=== PATIENT | male | born 1950 | race Caucasian/White ===

== ENCOUNTER 2023-01-02 16:13 | Inpatient (IN) ==
[2023-01-02] MEDS ORDERED: SODIUM CHLORIDE 0.9% 1000ML 1,000 ML IV SCH (17:00)
--- NOTE | 2023-01-02 17:06 | Emergency Department Note ---
Impression & Plan Near syncope, KENA (acute kidney injury), Acute hyperkalemia, Hypomagnesemia ED Provider Note NAME: DI ROUSSEAU AGE: 72 SEX: M : 1950 ARRIVES VIA: Walk-In INFORMANT: Patient, ED PROVIDER(S): Robert Purvis DO CHIEF COMPLAINT: Low blood pressure HPI: The patient is a 72-year-old male who presented to the emergency department for an evaluation of low blood pressure. Patient went to see his family doctor because of dizziness. He felt as though he was going to pass out when he went to stand. The patient had outpatient laboratory studies drawn. He was called by his family doctor and told to go to the emergency department for further evaluation because his BUN and creatinine were elevated as well as his potassium. He was told he would need IV fluids. Patient states at rest he feels much better. He denies having any decreased urine output. He was recently started on spironolactone which his family doctor told him he should stop. Otherwise he has been compliant with his outpatient medications. ROS: See above HPI for pertinent positives & negatives. A total of 10 systems reviewed and were otherwise negative. PAST MEDICAL HISTORY: See Below PAST SURGICAL HISTORY: See Below FAMILY HISTORY: See Below SOCIAL HISTORY: See Below HOME MEDICATIONS: See Below ALLERGIES: See Below VITALS: See Below PHYSICAL EXAMINATION: GENERAL: Patient is awake alert in no acute distress patient is resting c omfortably and showing no signs of anxiety EYES: The conjunctivae are clear. The pupils are round and reactive. EARS, NOSE, MOUTH AND THROAT: The nose is without any evidence of any deformity. NECK: The neck is nontender and supple. RESPIRATORY: Normal respiratory effort is noted there is no evidence of wheezing rhonchi or rales CARDIOVASCULAR: Regular rate and rhythm noted there no murmurs rubs or gallops normal S1 normal S2. GASTROINTESTINAL: The abdomen is soft. Abdomen is nontender. MUSCULOSKELETAL/EXTREMITIES: There is no evidence of gross deformity full range of motion is noted in the hips and shoulders. SKIN: There is no obvious evidence of any rash. There are no petechiae, pallor or cyanosis noted. NEUROLOGIC: Patient is awake alert and oriented x3 MEDICAL DECISION MAKING: The patient is a 72-year-old male who presented to the emergency department for dizziness and near syncope. The patient was seen by his primary care physician previously. He was sent to the emergency department for further evaluation after his laboratory studies revealed an elevation in his potassium. The patient was treated with IV fluids in the emergency department. On reevaluation he was feeling somewhat improved. I discussed patient's laboratory and radiographic studies with him. He does appear to have an elevation in his creatinine compared to baseline which is likely related to his medications. Given his findings I discussed his condition with the on-call [facility] hospitalist. They have agreed to evaluate the patient in the emergency department for further management and disposition. Triage Nursing notes reviewed. Prior medical records reviewed Vital Signs: reviewed and remarkable for elevated blood pressure. Differential diagnosis: Infection, dehydration, metabolic abnormality, hypo/hyperglycemia, electrolyte disturbance, anemia, hypoxia, cardiac sources, intracerebral event, toxicologic, neurologic, as well as other pathologies. ER treatment provided: See below Diagnostics interpreted by me: ECG: EKG was obtained in the emergency department. My interpretation is normal sinus rhythm at 74 bpm. There was no ectopy. Right bundle branch block pattern was noted. This was paired to a tracing from October 25, 2009. The bundle-branch block is new compared to the previous tracing. Cardiac Monitoring: An order was placed for continuous cardiac monitoring. The monitor shows a rate of 68 bpm with sinus rhythm. Laboratory studies: As stated above and show below. Imaging studies: See below. Radiographic imaging was reviewed by myself Consultation(s): I discussed this case with Dr. Rose Past Med/Surg History Medical History Actinic keratitis Anxiety Arthritis Asthma rare rescue inhaler use/"well controlled" Cardiac murmur no significant valvular disease per 2011 DSE Chronic bronchitis Chronic obstructive pulmonary disease "well controlled" per patient Depression GERD (gastroesophageal reflux disease) Hiatal hernia Hyperlipidemia Hypertension Lung mass hx/"resolved" s/p abx treatment/no further details Surgical History Fusion of spine LUMBAR History of colonoscopy History of esophagogastroduodenoscopy (EGD) History of hip surgery LEFT> PER PATIENT> HAD THIS PROCEDURE A CHILD FOR A BLOOD CLOT THAT HAD HARDENED IN HIS HIP> REMOVED CLOT NO ISSUE SINCE History of right cataract surgery Family History Father Heart disease Family/Other Colon cancer Mother Diabetes Social History Smoking Status: Never smoker Second Hand Exposure: No; Do You Dip or Chew Tobacco: Yes (1 can a day/advised); Hx Alcohol Use: No Hx Substance Use: No Preferred Language: Syrian Communication Ability: Effective Branch Specialist Required: No Beliefs That Will Affect Care: None marital status: Current Living Situation: Spouse current occupational status: retired Feels Safe at Home: Yes Assistive Devices: Glasses and Hearing Aid - Bilateral Allergies Allergies Allergy/AdvReac Type Severity Reaction Status Date / Time amlodipine Allergy Intermediate Hives Verified 01/02/23 18:00 nizatidine Allergy Intermediate Hives Verified 01/02/23 18:00 simvastatin Allergy Intermediate Hives Verified 01/02/23 18:00 Home Meds Home Medications Medication Instructions Recorded Confirmed atorvastatin 80 mg tablet 80 mg PO PM 03/08/19 01/02/23 cholecalciferol (vitamin D3) 50 2,000 unit PO QAM 03/08/19 01/02/23 mcg (2,000 unit) tablet fluvoxamine 100 mg tablet 50 mg PO BID 03/08/19 01/02/23 fosinopril 40 mg tablet 40 mg PO QAM 03/08/19 01/02/23 metoprolol succinate 25 mg 25 mg PO QAM 03/08/19 01/02/23 tablet,extended release 24 hr omeprazole 40 mg capsule,delayed 40 mg PO BID 03/08/19 01/02/23 release doxazosin 4 mg tablet 4 mg PO DAILY 10/18/20 01/02/23 cetirizine 10 mg tablet (Zyrtec) 10 mg PO DAILY PRN Congestion 01/02/23 01/02/23 fluticasone propionate 50 2 spray intranasal DAILY PRN 01/02/23 01/02/23 mcg/actuation nasal Congestion spray,suspension gabapentin 300 mg capsule 300 mg PO BID 01/02/23 01/02/23 mirtazapine 30 mg tablet 30 mg PO HS 01/02/23 01/02/23 spironolactone 50 mg tablet 50 mg PO QAM 01/02/23 01/02/23 Previous Rx's Medication Instructions Recorded albuterol sulfate 90 mcg/actuation 90 mcg inhalation Q4H PRN 05/27/22 aerosol inhaler Shortness Of Breath #3 grams Results & Data (ED) Vital Signs Vital Signs - 24 hr 01/02/23 16:14 01/02/23 16:55 01/02/23 17:28 Temperature 36.8 C Temperature Source Temporal Artery Scan Pulse Rate 78 74 Pulse Rate [Right Finger] Pulse Rhythm [Right Finger] Pulse Strength [Right Finger] Respiratory Rate 18 Respiratory Effort / Characteristics Non-Labored Respiratory Depth Normal Respiratory Pattern Blood Pressure 124/78 Blood Pressure [Right Arm] Blood Pressure Mean 93 Blood Pressure Mean [Right Arm] Blood Pressure Position [Right Arm] Pulse Oximetry 96 93 Oxygen Delivery Method Room Air Room Air Sepsis Recent Fever Within 48 Hours No Sepsis New/Unexplained Change in Mental Status No Sepsis Action Taken by Nursing No Action Required 01/02/23 18:00 Temperature Temperature Source Pulse Rate Pulse Rate [Right Finger] 62 Pulse Rhythm [Right Finger] Regular Pulse Strength [Right Finger] Normal Respiratory Rate 18 Respiratory Effort / Characteristics Non-Labored Respiratory Depth Normal Respiratory Pattern Regular Blood Pressure Blood Pressure [Right Arm] 145/84 H Blood Pressure Mean Blood Pressure Mean [Right Arm] 104 Blood Pressure Position [Right Arm] Lying Pulse Oximetry 98 Oxygen Delivery Method Room Air Sepsis Recent Fever Within 48 Hours Sepsis New/Unexplained Change in Mental Status Sepsis Action Taken by Retirement Medications Current Medication List: was personally reviewed by me Laboratory Data Attestation: I reviewed the patient's lab results. 01/02/23 16:55 01/02/23 16:55 Lab Results 01/02/23 01/02/23 01/02/23 Range/Units 16:55 16:55 16:55 WBC 9.97 (4.8-10.8) K/ul RBC 4.01 L (4.70-6.10) M/uL Hgb 13.2 L (14.0-18.0) g/dl Hct 38.3 L (42.0-52.0) % MCV 95.5 (80.0-100.0) fL MCH 32.9 (25.0-34.0) pg MCHC 34.5 (32.0-36.0) g/dL RDW Std Deviation 46.6 H (36.4-46.3) fL RDW Coeff of Genny 13.2 (11.5-14.5) % Plt Count 238 (130-400) K/uL MPV 10.1 (9.4-12.4) fL Immature Gran % (Auto) 0.4 % Neut % (Auto) 74.5 % Lymph % (Auto) 15.7 % Williams % (Auto) 7.4 % Eos % (Auto) 1.6 % Baso % (Auto) 0.4 % Neut # (Auto) 7.42 H (1.40-6.50) K/uL Lymph # (Auto) 1.57 (1.2-3.4) K/uL Williams # (Auto) 0.74 H (0.11-0.59) K/uL Eos # (Auto) 0.16 (0-0.50) K/uL Baso # (Auto) 0.04 (0-0.2) K/uL Immature Gran # (Auto) 0.04 (0.01-0.20) K/uL PT 10.8 (9.0-12.0) Seconds INR 1.0 (0.9-1.1) APTT 24.2 (21.0-31.0) Seconds PTT Ratio 0.9 Sodium 136 (136-145) mmol/L Potassium 5.7 H (3.5-5.1) mmol/L Chloride 108 H (98-107) mmol/L Carbon Dioxide 22 (21-32) mmol/L Anion Gap 6 (3-11) BUN 52 H (6-23) mg/dl Creatinine 2.51 H (0.6-1.4) mg/dl Est Cr Clr Drug Dosing 30.1 ml/min Est GFR ( Amer) 28.5 ml/min Est GFR (Non-Af Amer) 24.6 ml/min BUN/Creatinine Ratio 20.7 H (10-20) Glucose 102 H (70-99(Fasting)) mg/dl Calcium 8.7 (8.6-10.3) mg/dl Magnesium 1.6 L (1.7-2.4) mg/dl Total Bilirubin 0.3 (0.2-1.0) mg/dl AST 15 (13-39) U/L ALT 15 (7-52) U/L Alkaline Phosphatase 84 (34-104) U/L Total Creatine Kinase 76 (30-223) U/L Troponin I High Sens 6.7 (0-20) pg/ml Total Protein 7.1 (6.0-8.3) gm/dl Albumin 3.8 (3.4-5.0) gm/dl Globulin 3.3 (2.5-4.0) gm/dl Albumin/Globulin Ratio 1.2 (0.9-2) TSH (0.300-4.500) uIu/ml SARS-CoV-2, RNA, NAAT (NEGATIVE) 01/02/23 01/02/23 Range/Units 16:55 17:32 WBC (4.8-10.8) K/ul RBC (4.70-6.10) M/uL Hgb (14.0-18.0) g/dl Hct (42.0-52.0) % MCV (80.0-100.0) fL MCH (25.0-34.0) pg MCHC (32.0-36.0) g/dL RDW Std Deviation (36.4-46.3) fL RDW Coeff of Genny (11.5-14.5) % Plt Count (130-400) K/uL MPV (9.4-12.4) fL Immature Gran % (Auto) % Neut % (Auto) % Lymph % (Auto) % Williams % (Auto) % Eos % (Auto) % Baso % (Auto) % Neut # (Auto) (1.40-6.50) K/uL Lymph # (Auto) (1.2-3.4) K/uL Williams # (Auto) (0.11-0.59) K/uL Eos # (Auto) (0-0.50) K/uL Baso # (Auto) (0-0.2) K/uL Immature Gran # (Auto) (0.01-0.20) K/uL PT (9.0-12.0) Seconds INR (0.9-1.1) APTT (21.0-31.0) Seconds PTT Ratio Sodium (136-145) mmol/L Potassium (3.5-5.1) mmol/L Chloride (98-107) mmol/L Carbon Dioxide (21-32) mmol/L Anion Gap (3-11) BUN (6-23) mg/dl Creatinine (0.6-1.4) mg/dl Est Cr Clr Drug Dosing ml/min Est GFR ( Amer) ml/min Est GFR (Non-Af Amer) ml/min BUN/Creatinine Ratio (10-20) Glucose (70-99(Fasting)) mg/dl Calcium (8.6-10.3) mg/dl Magnesium (1.7-2.4) mg/dl Total Bilirubin (0.2-1.0) mg/dl AST (13-39) U/L ALT (7-52) U/L Alkaline Phosphatase (34-104) U/L Total Creatine Kinase (30-223) U/L Troponin I High Sens (0-20) pg/ml Total Protein (6.0-8.3) gm/dl Albumin (3.4-5.0) gm/dl Globulin (2.5-4.0) gm/dl Albumin/Globulin Ratio (0.9-2) TSH 2.245 (0.300-4.500) uIu/ml SARS-CoV-2, RNA, NAAT NEGATIVE (NEGATIVE) Administered Medications Discontinued Medications Sodium Chloride (Nss 1000ml) 1,000 mls @ 999 mls/hr IV .Q1H1M KIMI Stop: 01/02/23 18:00 Last Infusion: 01/02/23 18:29 Dose: 0 mls/hr Documented By: Admin: 01/02/23 17:26 Dose: 999 mls/hr Documented By: AP Magnesium Oxide (Magnesium Oxide 400 Mg Tab) 400 mg PO ONE ONE Stop: 01/02/23 17:47 Last Admin: 01/02/23 17:52 Dose: 400 mg Documented By: AP Imaging Data Attestation: I personally reviewed and interpreted this imaging study as follows: My Impression: 1 view chest x-ray was obtained in the emergency department. My interpretation is no free air or infiltrate, final report below. Radiologist's Impression: Chest X-Ray 01/02/23 16:47 XR chest 1V portable HISTORY: 72 years-old Male weakness acute weakness COMPARISON: 03/10/2019 TECHNIQUE: AP view of the chest FINDINGS: Cardiac silhouette is enlarged. No pneumothorax, pleural effusion, airspace consolidation or pulmonary edema. Mild right hemidiaphragmatic elevation. Bones appear grossly intact. IMPRESSION: Cardiomegaly without acute process. ACT 112: Negative or not required by law. The above report was generated using voice recognition software. It may contain grammatical, syntax or spelling errors. Electronically signed by: Stefan Pace M.D. 01/02/2023 5:15 PM Discharge Plan Visit Data Chief Complaint: Hypotension Stated Complaint: REF BY DOC, LOW BLOOD PRESSURE, ABNORMAL LABS ED Provider: Robert Purvis Discharge Problem: Near syncope, KENA (acute kidney injury), Acute hyperkalemia, Hypomagnesemia Patient Disposition: Being Evaluated by Hospitalist Discharge Instructions Interventions: ED Discharge Assessment Last Done: 01/02/23 19:59
--- NOTE | 2023-01-02 17:16 | XRay Report ---
XR chest 1V portable HISTORY: 72 years-old Male weakness acute weakness COMPARISON: 03/10/2019 TECHNIQUE: AP view of the chest FINDINGS: Cardiac silhouette is enlarged. No pneumothorax, pleural effusion, airspace consolidation or pulmonar y edema. Mild right hemidiaphragmatic elevation. Bones appear grossly intact. IMPRESSION: Cardiomegaly without acute process. ACT 112: Negative or not required by law. The above report was generated using voice recognition software. It may contain grammatical, syntax o r spelling errors. Electronically signed by: Stefan Pace M.D. 01/02/2023 5:15 PM
[2023-01-02 17:28] LABS: Basophils # (auto) 0.04 K/uL (0-0.2); Basophils % (auto) 0.4 %; Eosinophils # (auto) 0.16 K/uL (0-0.50); Eosinophils % (auto) 1.6 %; Hematocrit (blood only) 38.3 % (42.0-52.0); Hemoglobin 13.2 g/dl (14.0-18.0); Immature Granulocytes # (auto) 0.04 K/uL (0.01-0.20); Immature Granulocytes % (auto) 0.4 %; Lymphocytes # (auto) 1.57 K/uL (1.2-3.4); Lymphocytes % (auto) 15.7 %; Mean Corpuscular Hemoglobin 32.9 pg (25.0-34.0); Mean Corpuscular Hgb Conc 34.5 g/dL (32.0-36.0); Mean Corpuscular Volume 95.5 fL (80.0-100.0); Mean Platelet Volume 10.1 fL (9.4-12.4); Monocytes # (auto) 0.74 K/uL (0.11-0.59); Monocytes % (auto) 7.4 %; Neutrophils # (auto) 7.42 K/uL (1.40-6.50); Neutrophils % (auto) 74.5 %; Platelet Count 238 K/uL (130-400); RDW Coefficient of Variation 13.2 % (11.5-14.5); RDW Standard Deviation 46.6 fL (36.4-46.3); Red Blood Count 4.01 M/uL (4.70-6.10); White Blood Count 9.97 K/ul (4.8-10.8)
[2023-01-02 17:44] LABS: Albumin Globulin Ratio 1.2 (0.9-2); Albumin Level 3.8 gm/dl (3.4-5.0); BUN Creatinine Ratio 20.7 (10-20); Bilirubin,Total 0.3 mg/dl (0.2-1.0); Calcium 8.7 mg/dl (8.6-10.3); Creatinine Clr Calc Pharmacy 30.1 ml/min; Est GFR (African American) 28.5 ml/min; Est GFR (Non-African American) 24.6 ml/min; Globulin 3.3 gm/dl (2.5-4.0); Magnesium 1.6 mg/dl (1.7-2.4); Potassium 5.7 mmol/L (3.5-5.1); Total Protein 7.1 gm/dl (6.0-8.3)
[2023-01-02] MEDS ORDERED: MAGNESIUM OXIDE 400 MG TAB PO ONE (17:46)
[2023-01-02 17:48] LABS: Troponin I High Sensitivity 6.7 pg/ml (0-20)
[2023-01-02 17:52] LABS: Partial Thromboplastin Ratio 0.9; Partial Thromboplastin Time 24.2 Seconds (21.0-31.0); Prothrombin Time 10.8 Seconds (9.0-12.0)
[2023-01-02] MEDS ORDERED: ONDANSETRON INJ 2 MG/ML 2 ML VIAL IV PRN (19:03)
[2023-01-02] MEDS ORDERED: POLYETHYLENE (MIRALAX) 17 GM PACK PO PRN (19:03)
[2023-01-02] MEDS ORDERED: ACETAMINOPHEN 325 MG TAB PO PRN (19:03)
[2023-01-02] MEDS ORDERED: ALUMINUM/MAGNESIUM SUSP 30 ML UDC PO PRN (19:03)
--- NOTE | 2023-01-02 19:15 | History & Physical Report ---
Date of Service January 02, 2023 Assessment & Plan (1) Hypotension: (2) KENA (acute kidney injury): (3) Acute hyperkalemia: (4) Hypomagnesemia: (5) Asthma: (6) MGUS (monoclonal gammopathy of unknown significance): (7) MDD (major depressive disorder): (8) DDD (degenerative disc disease), cervical: (9) CKD (chronic kidney disease): Plan 72yoM with PMHx of uncontrolled HTN, MGUS, MDD/CHIO, HLD, GERD, CKD, Asthma and DDD who was sent in by PCP's office for hyperkalemia, acute on chronic kidney injury and hypotension. Hypotension/Acute on chronic kidney injury/Hyperkalemia/Hypomagnesemia Pt with uncontrolled HTN, follows with Nephrology. States he was recently started on spironolactone in November. Was dizzy today, had BP checked and was noted to be hypotensive. Also on fosinopril, metoprolol, doxazosin daily. Had labwork done which showed K of 5.7 and Cr. 2.5, which is elevated from baseline of 1.27. PCP office advised to present to the ED for further evaluation. Received magnesium and IV fluids in the ED. Continue IV fluids with repeat BMP at midnight No need for Veltassa/insulin at this time, hold potassium-sparing spironolactone and other home HTN meds temporarily. Pt does note that his BP can be higher towards the end of the day. Consider re-starting slowly if this occurs. Replete Mag MGUS: Follows with heme/onc, currently just being monitored. MDD/CHIO- continue home fluvoxamine, remeron. DDD- continue home gabapentin HLD- continue home statin GERD- continue home ppi CKD- currently an acute kidney injury superimposed, follows with nephrology outpt who has been managing the resistant hypertension Asthma-continue home inhalers Diet: HH, low potassium CODE STATUS: Pt desires to be DNR/DNI DVT prophylaxis: Lovenox SQ Dispo: Med/Surg with tele History of Present Illness Chief Complaint: Hypotension/Dizziness Primary Care Provider: Brennan Wolff MD 72yoM with PMHx of uncontrolled HTN, MGUS, MDD/CHIO, HLD, GERD, CKD, Asthma and DDD who was sent in by PCP's office for hyperkalemia, acute on chronic kidney injury and hypotension. present at bedside and helps with the history. He states that he has a history of uncontrolled HTN, currently on 4 medications. 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 He notes that his BP tends to be on the lower end in the AM and higher during the evening. States he has worn monitors to help figure it out. He states he started to feel dizzy today and knew his BP was low so he asked the nurses to check it. It was low and so his pcp ordered some labs. He was found to be hyperkalemic with acute on chronic kidney injury and was advised to go to the ED for further evaluation. States his MGUS is currently being monitored, no treatments at this time. Former Hx of a concerning lung mass that became smaller after antibiotic treatment. Had one inconclusive biopsy and was supposed to repeat the biopsy but the lesion got smaller and they never did. Currently follows with pulmonology for his asthma that he has had from childhood. Allergies Allergy/AdvReac Type Severity Reaction Status Date / Time amlodipine Allergy Intermediate Hives Verified 01/02/23 18:00 nizatidine Allergy Intermediate Hives Verified 01/02/23 18:00 simvastatin Allergy Intermediate Hives Verified 01/02/23 18:00 Home Medications Medication Instructions Recorded Confirmed Type atorvastatin 80 mg tablet 80 mg PO PM 03/08/19 01/02/23 History cholecalciferol (vitamin D3) 50 2,000 unit PO QAM 03/08/19 01/02/23 History mcg (2,000 unit) tablet fluvoxamine 100 mg tablet 50 mg PO BID 03/08/19 01/02/23 History fosinopril 40 mg tablet 40 mg PO QAM 03/08/19 01/02/23 History metoprolol succinate 25 mg 25 mg PO QAM 03/08/19 01/02/23 History tablet,extended release 24 hr omeprazole 40 mg capsule,delayed 40 mg PO BID 03/08/19 01/02/23 History release doxazosin 4 mg tablet 4 mg PO DAILY 10/18/20 01/02/23 History albuterol sulfate 90 mcg/actuation 90 mcg inhalation Q4H PRN 05/27/22 01/02/23 Rx aerosol inhaler Shortness Of Breath #3 grams cetirizine 10 mg tablet (Zyrtec) 10 mg PO DAILY PRN Congestion 01/02/23 01/02/23 History fluticasone propionate 50 2 spray intranasal DAILY PRN 01/02/23 01/02/23 History mcg/actuation nasal Congestion spray,suspension gabapentin 300 mg capsule 300 mg PO BID 01/02/23 01/02/23 History mirtazapine 30 mg tablet 30 mg PO HS 01/02/23 01/02/23 History spironolactone 50 mg tablet 50 mg PO QAM 01/02/23 01/02/23 History Past Med/Surg History Medical History Actinic keratitis Anxiety Arthritis Asthma rare rescue inhaler use/"well controlled" Cardiac murmur no significant valvular disease per 2011 DSE Chronic bronchitis Chronic obstructive pulmonary disease "well controlled" per patient Depression GERD (gastroesophageal reflux disease) Hiatal hernia Hyperlipidemia Hypertension Lung mass hx/"resolved" s/p abx treatment/no further details Surgical History Fusion of spine LUMBAR History of colonoscopy History of esophagogastroduodenoscopy (EGD) History of hip surgery LEFT> PER PATIENT> HAD THIS PROCEDURE A CHILD FOR A BLOOD CLOT THAT HAD HARDENED IN HIS HIP> REMOVED CLOT NO ISSUE SINCE History of right cataract surgery Family History Father Heart disease Family/Other Colon cancer Mother Diabetes Social History Smoking Status: Never smoker Second Hand Exposure: No; Do You Dip or Chew Tobacco: Yes (1 can a day/advised); Hx Alcohol Use: No Hx Substance Use: No Preferred Language: Romanian Communication Ability: Effective 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 No acute distress Skin: surgical scar noted on back Psych: Appropriate mood and affect Neuro: No gross deficits HEENT: NC/AT CV: RRR, Normal s1, s2. No murmurs appreciated Resp: Breath sounds clear bilaterally, no increased effort of breathing. Abdomen: Soft, nontender, nondistended. No guarding. No organomegaly appreciated. Extremities: No edema in lower extremities bilaterally. Results & Data Results & Data Vital Signs (Past 12 Hours) Vital Signs Temp Pulse Pulse Resp BP BP Pulse Ox 01/02/23 18:00 62 18 145/84 H 98 01/02/23 17:28 74 01/02/23 16:55 93 01/02/23 16:14 36.8 C 78 18 124/78 96 O2 Del Method 01/02/23 18:00 Room Air 01/02/23 17:28 01/02/23 16:55 Room Air 01/02/23 16:14 Room Air Diagnostic Findings Chest X-Ray 01/02/23 16:47 XR chest 1V portable HISTORY: 72 years-old Male weakness acute weakness COMPARISON: 03/10/2019 TECHNIQUE: AP view of the chest FINDINGS: Cardiac silhouette is enlarged. No pneumothorax, pleural effusion, airspace consolidation or pulmonary edema. Mild right hemidiaphragmatic elevation. Bones appear grossly intact. IMPRESSION: Cardiomegaly without acute process. ACT 112: Negative or not required by law. The above report was generated using voice recognition software. It may contain grammatical, syntax or spelling errors. Electronically signed by: Stefan Pace M.D. 01/02/2023 5:15 PM
[2023-01-02] MEDS ORDERED: CETIRIZINE HCL 10 MG TABLET PO PRN (20:41)
[2023-01-02] MEDS ORDERED: ALBUTEROL HFA 8 GM INHALER INH PRN (20:41)
[2023-01-02] MEDS: PANTOprazole 40 MG TAB PO SCH (21:46)
[2023-01-02] MEDS: ATORVASTATIN 40 MG TAB PO SCH (21:46)
[2023-01-02] MEDS: fluvoxaMINE MALEATE 50 MG TAB PO SCH (21:46)
[2023-01-02] MEDS: GABAPENTIN 300 MG CAP PO SCH (21:46)
[2023-01-02] MEDS: MIRTAZAPINE TAB 15 MG TAB PO SCH (21:46)
[2023-01-02] MEDS: SODIUM CHLORIDE 0.9% 1000ML 1,000 ML IV SCH (21:47)
[2023-01-02] MEDS: ENOXAPARIN INJ 40 MG/0.4 ML SYR SQ SCH (22:06)
[2023-01-02 22:10] LABS: Appearance Urine Clear (Clear); Bilirubin Urine Negative (Negative); Blood Urine Negative (Negative); Color Urine Yellow; Glucose Urine UA Negative (Negative); Ketones Urine Negative (Negative); Leukocyte Esterase Urine Negative (Negative); Nitrite Urine Negative (Negative); Protein Urine Negative (Negative); Specific Gravity Urine 1.016 (1.000-1.030); Urobilinogen Urine Negative (Negative)
[2023-01-03 00:55] LABS: Calcium 8.3 mg/dl (8.6-10.3); Creatinine Clr Calc Pharmacy 39.1 ml/min; Est GFR (African American) 38.5 ml/min; Est GFR (Non-African American) 33.2 ml/min; Potassium 5.2 mmol/L (3.5-5.1)
[2023-01-03 07:05] LABS: Basophils # (auto) 0.05 K/uL (0-0.2); Basophils % (auto) 0.6 %; Eosinophils # (auto) 0.21 K/uL (0-0.50); Eosinophils % (auto) 2.5 %; Hematocrit (blood only) 36.7 % (42.0-52.0); Hemoglobin 12.3 g/dl (14.0-18.0); Immature Granulocytes # (auto) 0.04 K/uL (0.01-0.20); Immature Granulocytes % (auto) 0.5 %; Lymphocytes # (auto) 2.06 K/uL (1.2-3.4); Lymphocytes % (auto) 24.2 %; Mean Corpuscular Hemoglobin 32.5 pg (25.0-34.0); Mean Corpuscular Hgb Conc 33.5 g/dL (32.0-36.0); Mean Corpuscular Volume 96.8 fL (80.0-100.0); Mean Platelet Volume 10.1 fL (9.4-12.4); Monocytes # (auto) 0.74 K/uL (0.11-0.59); Monocytes % (auto) 8.7 %; Neutrophils # (auto) 5.42 K/uL (1.40-6.50); Neutrophils % (auto) 63.5 %; Platelet Count 234 K/uL (130-400); RDW Coefficient of Variation 13.4 % (11.5-14.5); RDW Standard Deviation 47.8 fL (36.4-46.3); Red Blood Count 3.79 M/uL (4.70-6.10); White Blood Count 8.52 K/ul (4.8-10.8)
[2023-01-03 07:33] LABS: BUN Creatinine Ratio 24.2 (10-20); Calcium 8.5 mg/dl (8.6-10.3); Creatinine Clr Calc Pharmacy 46.5 ml/min; Est GFR (African American) 47.4 ml/min; Est GFR (Non-African American) 40.9 ml/min; Magnesium 1.5 mg/dl (1.7-2.4); Potassium 5.6 mmol/L (3.5-5.1)
[2023-01-03] MEDS: fluvoxaMINE MALEATE 50 MG TAB PO SCH ×2 (08:46→20:24)
[2023-01-03] MEDS: CHOLECALCIFEROL 1,000 UNITS 25 MCG TAB PO SCH (08:46)
[2023-01-03] MEDS: PANTOprazole 40 MG TAB PO SCH (08:46)
[2023-01-03] MEDS: GABAPENTIN 300 MG CAP PO SCH ×2 (08:46→20:24)
--- NOTE | 2023-01-03 10:50 | Electrocardiogram Report ---
Test Reason : Blood Pressure : / mmHG Vent. Rate : 074 BPM Atrial Rate : 074 BPM P-R Int : 164 ms QRS Dur : 152 ms QT Int : 374 ms P-R-T Axes : 002 078 -10 degrees QTc Int : 415 ms Normal sinus rhythm Right bundle branch block T wave abnormality, consider lateral ischemia Abnormal ECG When compared with ECG of 25-OCT-2009 06:57, QRS duration has increased Non-specific change in ST segment in Anterior leads T wave inversion now evident in Inferior leads T wave inversion now evident in Anterolateral leads Confirmed by Jose Alfredo Morin ([id number]) on 01/03/2023 10:49:59 AM Referred By: Brennan Wolff Confirmed By:Jax Morin
[2023-01-03] MEDS: SODIUM CHLORIDE 0.9% 1000ML 1,000 ML IV SCH ×2 (11:40→22:41)
[2023-01-03] MEDS: MAGNESIUM OXIDE 400 MG TAB PO SCH ×2 (12:58→20:23)
[2023-01-03 14:32] LABS: Estimated Average Glucose 134 mg/dl; Hemoglobin A1C 6.3 % (4.5-5.6)
[2023-01-03] MEDS: MoRPHine SULFATE 2 MG/ML CARP IV PRN ×2 (14:42→20:46)
[2023-01-03] MEDS: CYCLOBENZAPRINE HCL 10 MG TAB PO PRN ×2 (14:42→22:39)
--- NOTE | 2023-01-03 16:26 | Hospitalist Progress Note ---
Date of Service January 03, 2023 Assessment & Plan (1) Hypotension: (2) KENA (acute kidney injury): (3) Acute hyperkalemia: (4) Hypomagnesemia: (5) Asthma: (6) MGUS (monoclonal gammopathy of unknown significance): (7) MDD (major depressive disorder): (8) DDD (degenerative disc disease), cervical: (9) CKD (chronic kidney disease): Plan 72yoM with PMHx of uncontrolled HTN, MGUS, MDD/CHIO, HLD, GERD, CKD, Asthma and DDD who was sent in by PCP's office for hyperkalemia, acute on chronic kidney injury and hypotension. Hypotension/Acute on chronic kidney injury/Hyperkalemia/Hypomagnesemia Pt with uncontrolled HTN, follows with Nephrology. States he was recently started on spironolactone in November. Was dizzy on admission, had BP checked and was noted to be hypotensive. Was also on fosinopril, metoprolol, doxazosin daily. Had labwork done which showed K of 5.7 and Cr. 2.5, which is elevated from baseline of 1.27. PCP office advised to present to the ED for further evaluation. Received magnesium and IV fluids in the ED. Continue IV fluids, kidney function slowly improving K+ decreased but is now elevated once more, will continue to montior for another day. No need for Veltassa/insulin at this time, continue to hold potassium-sparing spironolactone and other home HTN meds temporarily. Pt does note that his BP can be higher towards the end of the day. Consider re-starting slowly if this occurs. Replete Mag as needed- pantoprazole held temporarily as it's use might be contributing to his hypomag Neck pain Started on flexeril as needed Also ordered morphine prn MGUS: Follows with heme/onc, currently just being monitored. MDD/CHIO- continue home fluvoxamine, remeron. DDD- continue home gabapentin HLD- continue home statin GERD- hold home ppi as above as a potential cause of his persistent hypomag CKD- currently an acute kidney injury superimposed, follows with nephrology outpt who has been managing the resistant hypertension Asthma-continue home inhalers Diet: HH, low potassium CODE STATUS: Pt desires to be DNR/DNI DVT prophylaxis: Lovenox SQ Dispo: Med/Surg with tele Admission and Anticipated Discharge Date Admission Date: January 02, 2023 Subjective Pt states that he is doing well except he has been having very bad neck pain. States he was previously on an NSAID for it but it was discontinued due to his kidney function. States that he is seriously considering going back on the medication in spite of his kidney function. Review of Systems Review of Systems: All systems reviewed & are unremarkable except as noted in Subjective Physical Exam Physical Exam: General: Alert, oriented. No acute distress Skin: surgical scar noted on back Psych: Appropriate mood and affect Neuro: No gross deficits HEENT: NC/AT CV: RRR, Normal s1, s2. No murmurs appreciated Resp: Breath sounds clear bilaterally, no increased effort of breathing. Abdomen: Soft, nontender, nondistended. No guarding. No organomegaly appreciated. Extremities: No edema in lower extremities bilaterally. Results & Data Results & Data Vital Signs (Past 12 Hours) Vital Signs Temp Pulse Pulse Resp BP Pulse Ox O2 Del Method 01/03/23 16:21 36.7 C 60 18 120/70 95 Room Air 01/03/23 16:09 79 01/03/23 11:57 36.7 C 69 18 134/80 91 Room Air 01/03/23 08:00 69 01/03/23 07:55 36.7 C 68 18 144/84 H 91 Room Air
[2023-01-03] MEDS: ATORVASTATIN 40 MG TAB PO SCH (20:23)
[2023-01-03] MEDS: ENOXAPARIN INJ 40 MG/0.4 ML SYR SQ SCH (20:24)
[2023-01-03] MEDS: MIRTAZAPINE TAB 15 MG TAB PO SCH (20:24)
[2023-01-04] MEDS: MoRPHine SULFATE 2 MG/ML CARP IV PRN ×2 (03:08→20:18)
[2023-01-04] MEDS: CYCLOBENZAPRINE HCL 10 MG TAB PO PRN ×2 (05:49→16:36)
[2023-01-04 07:49] LABS: Basophils # (auto) 0.03 K/uL (0-0.2); Basophils % (auto) 0.5 %; Eosinophils # (auto) 0.18 K/uL (0-0.50); Eosinophils % (auto) 2.9 %; Hematocrit (blood only) 36.6 % (42.0-52.0); Hemoglobin 12.2 g/dl (14.0-18.0); Immature Granulocytes # (auto) 0.02 K/uL (0.01-0.20); Immature Granulocytes % (auto) 0.3 %; Lymphocytes # (auto) 1.87 K/uL (1.2-3.4); Lymphocytes % (auto) 29.7 %; Mean Corpuscular Hemoglobin 32.4 pg (25.0-34.0); Mean Corpuscular Hgb Conc 33.3 g/dL (32.0-36.0); Mean Corpuscular Volume 97.3 fL (80.0-100.0); Mean Platelet Volume 9.9 fL (9.4-12.4); Monocytes # (auto) 0.52 K/uL (0.11-0.59); Monocytes % (auto) 8.3 %; Neutrophils # (auto) 3.67 K/uL (1.40-6.50); Neutrophils % (auto) 58.3 %; Platelet Count 216 K/uL (130-400); RDW Coefficient of Variation 13.2 % (11.5-14.5); RDW Standard Deviation 47.9 fL (36.4-46.3); Red Blood Count 3.76 M/uL (4.70-6.10); White Blood Count 6.29 K/ul (4.8-10.8)
[2023-01-04 08:16] LABS: BUN Creatinine Ratio 18.8 (10-20); Creatinine Clr Calc Pharmacy 51.4 ml/min; Est GFR (African American) 53.6 ml/min; Est GFR (Non-African American) 46.2 ml/min; Magnesium 1.3 mg/dl (1.7-2.4); Potassium 5.1 mmol/L (3.5-5.1)
[2023-01-04] MEDS: fluvoxaMINE MALEATE 50 MG TAB PO SCH ×2 (08:29→20:19)
[2023-01-04] MEDS: GABAPENTIN 300 MG CAP PO SCH ×2 (08:29→20:20)
[2023-01-04] MEDS: CHOLECALCIFEROL 1,000 UNITS 25 MCG TAB PO SCH (08:29)
[2023-01-04] MEDS: MAGNESIUM OXIDE 400 MG TAB PO SCH (08:29)
[2023-01-04] MEDS ORDERED: MAGNESIUM CHLORIDE W/CALCIUM 64MG DELAYED REL TAB PO ONE (09:38)
[2023-01-04] MEDS ORDERED: METOPROLOL SUCC 25MG EXT REL TAB PO SCH (09:45)
--- NOTE | 2023-01-04 09:51 | Hospitalist Progress Note ---
Date of Service January 04, 2023 Assessment & Plan (1) Hypotension: (2) KENA (acute kidney injury): (3) Acute hyperkalemia: (4) Hypomagnesemia: (5) Asthma: (6) MGUS (monoclonal gammopathy of unknown significance): (7) MDD (major depressive disorder): (8) DDD (degenerative disc disease), cervical: (9) CKD (chronic kidney disease): Plan 72yoM with PMHx of uncontrolled HTN, MGUS, MDD/CHIO, HLD, GERD, CKD, Asthma and DDD who was sent in by PCP's office for hyperkalemia, acute on chronic kidney injury and hypotension. Currently all resolved except persistent hypomagnesemia. Acute on chronic kidney injury/Hyperkalemia Pt with uncontrolled HTN, follows with Nephrology. States he was recently started on spironolactone in November. Was dizzy on admission, had BP checked and was noted to be hypotensive. Was also on fosinopril, metoprolol, doxazosin daily. Had labwork done which showed K of 5.7 and Cr. 2.5, which is elevated from baseline of 1.27. PCP office advised to present to the ED for further evaluation. Received magnesium and IV fluids in the ED. kidney function currently improved, K+ wnl Hypomagnesemia Mag persistently low, 1.3 currently in spite of mag ox medication. Started on slow mag with IV mad sulfate, 2 bags. Holding pantoprazole which can cause hypomagnesemia Monitor with AM labs Hypertension Hypotension currently resolved. Started back on home metoprolol succinate with BID dosing Slow re-start of medications as needed. Neck pain Started on flexeril as needed Also ordered morphine prn MGUS: Follows with heme/onc, currently just being monitored. MDD/CHIO- continue home fluvoxamine, remeron. DDD- continue home gabapentin HLD- continue home statin GERD- hold home ppi as above as a potential cause of his persistent hypomag CKD- currently an acute kidney injury superimposed, follows with nephrology outpt who has been managing the resistant hypertension Asthma-continue home inhalers Diet: HH, low potassium CODE STATUS: DNR/DNI DVT prophylaxis: Lovenox SQ Dispo: Med/Surg with tele Admission and Anticipated Discharge Date Admission Date: January 02, 2023 Subjective Pt states that he is doing well, still having the very bad neck pain. States that the muscle relaxer and morphine take the edge off. Otherwise no other complaints. Review of Systems Review of Systems: All systems reviewed & are unremarkable except as noted in Subjective Physical Exam Physical Exam: General: Alert, oriented. No acute distress Skin: surgical scar noted on back Psych: Appropriate mood and affect Neuro: No gross deficits HEENT: NC/AT CV: RRR, Normal s1, s2. No murmurs appreciated Resp: Breath sounds clear bilaterally, no increased effort of breathing. Abdomen: Soft, nontender, nondistended. No guarding. No organomegaly appreciated. Extremities: No edema in lower extremities bilaterally. Results & Data Results & Data Vital Signs (Past 12 Hours) Vital Signs Temp Pulse Pulse Resp BP Pulse Ox O2 Del Method 01/04/23 08:27 36.6 C 60 18 142/81 H 94 Room Air 01/04/23 08:00 72 01/04/23 03:14 36.8 C 70 18 155/93 H 91 Room Air 01/03/23 23:56 36.8 C 77 18 172/86 H 90 Room Air
[2023-01-04 10:13] LABS: Phosphorus 3.8 mg/dl (2.5-4.9)
[2023-01-04] MEDS: SODIUM CHLORIDE 0.9% 1000ML 1,000 ML IV SCH (12:24)
[2023-01-04] MEDS: MAGNESIUM SULFATE / D5W 1 GM/100 ML BAG IV SCH ×2 (16:37→18:30)
[2023-01-04] MEDS: MIRTAZAPINE TAB 15 MG TAB PO SCH (20:18)
[2023-01-04] MEDS: ENOXAPARIN INJ 40 MG/0.4 ML SYR SQ SCH ×2 (20:18→20:25)
[2023-01-04] MEDS: MAGNESIUM CHLORIDE W/CALCIUM 64MG DELAYED REL TAB PO SCH (20:19)
[2023-01-04] MEDS: METOPROLOL SUCC 25MG EXT REL TAB PO SCH (20:19)
[2023-01-04] MEDS: ATORVASTATIN 40 MG TAB PO SCH (20:20)
[2023-01-05 07:25] LABS: Basophils # (auto) 0.05 K/uL (0-0.2); Basophils % (auto) 0.6 %; Eosinophils # (auto) 0.26 K/uL (0-0.50); Hemoglobin 12.7 g/dl (14.0-18.0); Immature Granulocytes # (auto) 0.03 K/uL (0.01-0.20); Immature Granulocytes % (auto) 0.3 %; Lymphocytes # (auto) 2.03 K/uL (1.2-3.4); Lymphocytes % (auto) 23.6 %; Mean Corpuscular Hemoglobin 32.6 pg (25.0-34.0); Mean Corpuscular Hgb Conc 34.3 g/dL (32.0-36.0); Mean Corpuscular Volume 95.1 fL (80.0-100.0); Mean Platelet Volume 9.7 fL (9.4-12.4); Monocytes # (auto) 0.64 K/uL (0.11-0.59); Monocytes % (auto) 7.4 %; Neutrophils % (auto) 65.1 %; Platelet Count 237 K/uL (130-400); RDW Coefficient of Variation 13.2 % (11.5-14.5); RDW Standard Deviation 45.7 fL (36.4-46.3); Red Blood Count 3.89 M/uL (4.70-6.10); White Blood Count 8.61 K/ul (4.8-10.8)
[2023-01-05 07:40] LABS: BUN Creatinine Ratio 17.3 (10-20); Calcium 9.4 mg/dl (8.6-10.3); Creatinine Clr Calc Pharmacy 57.3 ml/min; Est GFR (African American) 61.5 ml/min; Magnesium 1.6 mg/dl (1.7-2.4); Potassium 5.5 mmol/L (3.5-5.1)
[2023-01-05] MEDS: GABAPENTIN 300 MG CAP PO SCH (08:21)
[2023-01-05] MEDS: METOPROLOL SUCC 25MG EXT REL TAB PO SCH (08:21)
[2023-01-05] MEDS: MAGNESIUM SULFATE / D5W 1 GM/100 ML BAG IV SCH ×2 (08:22→11:07)
[2023-01-05] MEDS: CHOLECALCIFEROL 1,000 UNITS 25 MCG TAB PO SCH (08:22)
[2023-01-05] MEDS: fluvoxaMINE MALEATE 50 MG TAB PO SCH (08:22)
[2023-01-05] MEDS: MAGNESIUM CHLORIDE W/CALCIUM 64MG DELAYED REL TAB PO SCH (08:22)
[2023-01-05] MEDS ORDERED: DOXAZosin MESYLATE 4 MG TAB PO SCH (09:45)
--- NOTE | 2023-01-05 09:58 | Nephrology Consultation ---
Date of Consultation January 05, 2023 Assessment & Plan (1) KENA (acute kidney injury): Patient with acute kidney injury on CKD likely due to hypertension. His blood pressure was in the 80s over 50 on the day of admission. Admission creatinine was 2.5 from a baseline of 1.2. Patient has received IV fluids and creatinine has improved down to 1.3 today. Electrolytes are stable. Blood pressure has improved. -Continue holding Aldactone and fosinopril. -Resume doxazosin 4 mg daily. -From renal standpoint patient can be discharged on metoprolol and doxazosin as well as Lokelma. (2) Acute hyperkalemia: Patient with hyperkalemia of multifactorial etiology including 2 potassium spar ing medications Aldactone and fosinopril. Patient also had acute kidney injury. Potassium remains at 5.5. -Low potassium diet. Patient should receive a low potassium diet sheet on discharge. -Lokelma 10 g daily. Patient can be discharged on diet, 10 g daily. He will need to repeat a BMP mid next week like Friday. He will follow-up with the PCP and nephrology in 1 to 2 weeks. History of Present Illness Reason for Consultation: Hyperkalemia and KENA Requesting Physician: Effie Rose MD Attending Physician: Effie Rose MD History of Present Illness This is 72-year-old male with history of hypertension, hyperlipidemia, MGUS, obesity, depression and CKD stage III baseline creatinine of 1.2 who was admitted with hyperkalemia of 5.7 and acute kidney injury with creatinine of 2.5 on labs done by the PCP. Patient has longstanding history of hypertension which has been difficult to control at times. He was recently started on Aldactone. He has longstanding history of hypokalemia and used to take potassium supplements. Since starting Aldactone, he stopped taking the potassium supplements. However his blood pressure has been dropping and was as low as 80/50 at home the day of admission. He endorses high potassium diet. Patient received IV fluids on admission and potassium sparing medications were held. His potassium has been stable around 5.5 today. Patient feels well denies any shortness of breath or leg swelling. Blood pressure is stable between 140 and 150 systolic. Currently on metoprolol 25 twice daily. Patient would like to go home. Allergies Allergy/AdvReac Type Severity Reaction Status Date / Time amlodipine Allergy Intermediate Hives Verified 01/02/23 18:00 nizatidine Allergy Intermediate Hives Verified 01/02/23 18:00 simvastatin Allergy Intermediate Hives Verified 01/02/23 18:00 Home Medications Medication Instructions Recorded Confirmed Type atorvastatin 80 mg tablet 80 mg PO PM 03/08/19 01/02/23 History cholecalciferol (vitamin D3) 50 2,000 unit PO QAM 03/08/19 01/02/23 History mcg (2,000 unit) tablet fluvoxamine 100 mg tablet 50 mg PO BID 03/08/19 01/02/23 History fosinopril 40 mg tablet 40 mg PO QAM 03/08/19 01/02/23 History metoprolol succinate 25 mg 25 mg PO QAM 03/08/19 01/02/23 History tablet,extended release 24 hr omeprazole 40 mg capsule,delayed 40 mg PO BID 03/08/19 01/02/23 History release doxazosin 4 mg tablet 4 mg PO DAILY 10/18/20 01/02/23 History albuterol sulfate 90 mcg/actuation 90 mcg inhalation Q4H PRN 05/27/22 01/02/23 Rx aerosol inhaler Shortness Of Breath #3 grams cetirizine 10 mg tablet (Zyrtec) 10 mg PO DAILY PRN Congestion 01/02/23 01/02/23 History fluticasone propionate 50 2 spray intranasal DAILY PRN 01/02/23 01/02/23 History mcg/actuation nasal Congestion spray,suspension gabapentin 300 mg capsule 300 mg PO BID 01/02/23 01/02/23 History mirtazapine 30 mg tablet 30 mg PO HS 01/02/23 01/02/23 History spironolactone 50 mg tablet 50 mg PO QAM 01/02/23 01/02/23 History Patient History Medical History Actinic keratitis Anxiety Arthritis Asthma rare rescue inhaler use/"well controlled" Cardiac murmur no significant valvular disease per 2010 DSE Chronic bronchitis Chronic obstructive pulmonary disease "well controlled" per patient Depression GERD (gastroesophageal reflux disease) Hiatal hernia Hyperlipidemia Hypertension Lung mass hx/"resolved" s/p abx treatment/no further details Surgical History Fusion of spine LUMBAR History of colonoscopy History of esophagogastroduodenoscopy (EGD) History of hip surgery LEFT> PER PATIENT> HAD THIS PROCEDURE A CHILD FOR A BLOOD CLOT THAT HAD HARDENED IN HIS HIP> REMOVED CLOT NO ISSUE SINCE History of right cataract surgery Family History Father Heart disease Family/Other Colon cancer Mother Diabetes Social History Smoking Status: Never smoker Second Hand Exposure: No; Do You Dip or Chew Tobacco: Yes (1 can a day/advised); Hx Alcohol Use: No Hx Substance Use: No Preferred Language: Eritrean Communication Ability: Effective 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 Car Cleaner Required: No Beliefs That Will Affect Care: None marital status: Current Living Situation: Spouse current occupational status: retired Other Information That Helps Us Care for You: No Feels Safe at Home: Yes Safety Concerns: Feels Safe At This Time Assistive Devices: None Assistive Devices Comment: uses cane at times Review of Systems Review of Systems: All other systems were reviewed and negative except as noted in HPI Physical Exam Physical Exam: General exam: Appears comfortable, no acute distress HEENT: Pupils are equal and reactive to light Neck: No JVD, neck is supple trachea is midline Respiratory system: Clear breath sounds bilaterally. Gastrointestinal: Abdomen is soft, non distended, non tender, bowel sounds are p resent CVS: Regular rate and rhythm. No murmurs, rubs or gallops Musculoskeletal: No joint or muscle tenderness Extremities: Non tender, no edema, peripheral pulses are present Neuro: Oriented, no tremors, no focal neurological deficits Skin: No rashes Results & Data Vital Signs (Past 12 Hours) Vital Signs Temp Pulse Pulse Resp BP Pulse Ox O2 Del Method 01/05/23 09:48 61 01/05/23 07:50 36.6 C 60 20 146/82 H 92 Room Air 01/05/23 03:53 36.6 C 65 18 142/82 H 91 Room Air 01/05/23 00:18 74 01/04/23 23:01 36.8 C 70 18 160/79 H 91 Room Air Laboratory Results 01/05/23 07:05 01/04/23 01/05/23 06:39 07:05 WBC 8.61 RBC 3.89 L MCV 95.1 MCH 32.6 MCHC 34.3 RDW Std Deviation 45.7 RDW Coeff of Genny 13.2 Plt Count 237 MPV 9.7 Phosphorus 3.8
[2023-01-05] MEDS ORDERED: SODIUM ZIRCONIUM CYCLOSILICATE 10 GM PACKET PO SCH (11:00)
--- NOTE | 2023-01-05 11:59 | Discharge Summary ---
Date of Service January 05, 2023 Admission HPI Per Admitting Provider 72yoM with PMHx of uncontrolled HTN, MGUS, MDD/CHIO, HLD, GERD, CKD, Asthma and DDD who was sent in by PCP's office for hyperkalemia, acute on chronic kidney injury and hypotension. present at bedside and helps with the history. He states that he has a history of uncontrolled HTN, currently on 4 medications. States his board finisher recently added spironolactone and he started taking it in October. He notes that his BP tends to be on the lower end in the AM and higher during the evening. States he has worn monitors to help figure it out. He states he started to feel dizzy today and knew his BP was low so he asked the nurses to check it. It was low and so his pcp ordered some labs. He was found to be hyperkalemic with acute on chronic kidney injury and was advised to go to the ED for further evaluation. States his MGUS is currently being monitored, no treatments at this time. Former Hx of a concerning lung mass that became smaller after antibiotic treatment. Had one inconclusive biopsy and was supposed to repeat the biopsy but the lesion got smaller and they never did. Currently follows with pulmonology for his asthma that he has had from childhood. Admission Exam Per Admitting Provider General: Alert, oriented. No acute distress Skin: surgical scar noted on back Psych: Appropriate mood and affect Neuro: No gross deficits HEENT: NC/AT CV: RRR, Normal s1, s2. No murmurs appreciated Resp: Breath sounds clear bilaterally, no increased effort of breathing. Abdomen: Soft, nontender, nondistended. No guarding. No organomegaly appreciated. Extremities: No edema in lower extremities bilaterally. Principal Diagnosis KENA/Hypokalemia Discharge Exam General: Alert, oriented. No acute distress Skin: surgical scar noted on back Psych: Appropriate mood and affect Neuro: No gross deficits HEENT: NC/AT CV: RRR, Normal s1, s2. No murmurs appreciated Resp: Breath sounds clear bilaterally, no increased effort of breathing. Abdomen: Soft, nontender. No guarding. No organomegaly appreciated. Extremities: No edema in lower extremities bilaterally. Discharge Data Allergies Allergy/AdvReac Type Severity Reaction Status Date / Time amlodipine Allergy Intermediate Hives Verified 01/02/23 18:00 nizatidine Allergy Intermediate Hives Verified 01/02/23 18:00 simvastatin Allergy Intermediate Hives Verified 01/02/23 18:00 Consultations 01/02/23 18:24 ED Decision to Admit Stat 01/05/23 08:07 Consult Nephrology Routine Hospital Course (1) Hypotension: (2) KENA (acute kidney injury): (3) Acute hyperkalemia: (4) Hypomagnesemia: (5) Asthma: (6) MGUS (monoclonal gammopathy of unknown significance): (7) MDD (major depressive disorder): (8) DDD (degenerative disc disease), cervical: (9) CKD (chronic kidney disease): Plan 72yoM with PMHx of uncontrolled HTN, MGUS, MDD/CHIO, HLD, GERD, CKD, Asthma and DDD who was sent in by PCP's office for acute on chronic kidney injury, hyperkalemia and hypotension. TO DO: Repeat BMP in 3 days Repeat Magnesium level in 3 days Acute on chronic kidney injury/Hyperkalemia Pt with Hx of uncontrolled HTN, follows with Nephrology. States he was recently started on spironolactone in November. Also on fosinopril, metoprolol, doxazosin daily. Was dizzy on admission, had BP checked and was noted to be hypotensive, about 80/40. Had labwork done by pcp/nephrology's office which showed K of 5.7 and Cr. 2.5, which was elevated from baseline of 1.27. PCP office advised to present to the ED for further evaluation. Received magnesium oxide and IV fluids in the ED. Kidney function continuously improved while on IV fluids while hospitalized. Potassium levels fluctuated but remained persistently elevated, average 5.5 even with improved kidney function and holding home spironolactone and FREDERICK inhibitor. Nephrology was consulted and advised starting Lokelma with repeat BMP in3 days and close follow up with nephrology and pcp. Hypomagnesemia Mag persistently low, 1.3 at the lowest in spite of magnesium oxide supplementation. Started on PO Slow Mag with IV magnesium sulfate. Level was 1.6 on discharge with administration of 2 more bags of IV magnesium sulfate. Holding pantoprazole which can cause hypomagnesemia- replaced with famotidine. Repeat magnesium level in 3 days. Hypertension Hypotension currently resolved. Restarted home metoprolol succinate and doxazosin. DISCONTINUE home spironolactone and fosinopril Nephrology and PCP follow up. Neck pain Started on flexeril as needed and discharged with 30 day supply. Morphine discontinued. MGUS: Follows with heme/onc, currently just being monitored. MDD/CHIO- continue home fluvoxamine, remeron. DDD- continue home gabapentin HLD- continue home statin GERD- hold home ppi as above as a potential cause of his persistent hypomagnesemia. Transitioned to pepcid. CKD- currently an acute kidney injury superimposed, follows with nephrology. Asthma-continue home inhalers Total Time Total Time Spent Total Time Spent (In Minutes): >30 minutes Discharge Plan Discharge Items Patient Disposition: Home - Self-Care Reason For Visit: HYPOTENSION/KENA/HYPERKALEMIA Discharge Diagnosis: Hyperkalemia, KENA Activity: Per Instructions section Non-emergency contact: Primary Care Provider and Leather Shaver Call non-emergency contact if: you have any medication questions and your symptoms worsen Follow-up/Referrals: Brennan Wolff MD [Primary Care Provider] - ( please call to schedule follow up within 1 week of discharge from [facility] ) Diet: Low Potassium (2gm) Addtl Attending Provider Instructions: Mr Askew, you were admitted due to you having high levels of potassium and acute kidney disease in the setting of your refractory hypertension. Concerning your blood pressure: Please STOP taking your home spironolactone and fosinopril. CONTINUE taking your home metoprolol and doxazosin. Please follow up with your board finisher and pcp for further management of your blood pressure in the next 1-3 weeks. Concerning your high potassium levels: The board finisher you saw in the hospital started you on a new medication, Lokelma 10g to help lower your potassium levels. We recommend a low potassium diet- provided you with some sheets to review. STOP taking the spironolactone and fosinopril as noted as above. We will recheck your levels in 3 days. Please follow up with your board finisher and pcp for further management in the next 1-3 weeks. Concerning your low magnesium levels: We recommend taking the Slow-Mag supplements you will be discharged with to help with maintaining those levels. We suspect your home omeprazole was a potential cause so we recommend you STOP taking that medication. We sent you a new prescription called famotidine to help with your reflux symptoms. We will recheck your level in 3 days as well. Please follow up with your board finisher and pcp for further management in the next 1-3 weeks. Concerning your kidney function: Your kidney function has improved to normal limits while you were hospitalized. Please follow up with your board finisher and pcp for further management in the next 1-3 weeks. Concerning your neck pain: You saw some improvement with Flexeril 10mg. We will discharge you with this medication and advise following up with your primary care provider for continued refills and further evaluation. Pending Studies at Discharge: No Stand-Alone Forms: [facility] [employer], Smoking Cessation Medications and DC Order Prescriptions: New cyclobenzaprine 10 mg Tablet 10 mg PO Q8H PRN (Reason: muscle spasm) Qty: 30 0RF Mag 64 64 mg Tablet,Delayed Release (Dr/Ec) 64 mg PO BID Qty: 60 0RF Lokelma 10 gram Powder In Packet 10 g PO DAILY@1100 Qty: 30 0RF famotidine [Pepcid] 20 mg tablet 20 mg PO BID 42 Days Qty: 84 0RF Continued doxazosin 4 mg tablet 4 mg PO DAILY albuterol sulfate 90 mcg/actuation HFA aerosol inhaler 90 mcg inhalation Q4H PRN (Reason: Shortness Of Breath) Qty: 3 0RF cholecalciferol (vitamin D3) 2,000 unit tablet 2,000 unit PO QAM metoprolol succinate 25 mg tablet extended release 24 hr 25 mg PO QAM fluvoxamine 100 mg tablet 50 mg PO BID atorvastatin 80 mg tablet 80 mg PO PM cetirizine [Zyrtec] 10 mg Tablet 10 mg PO DAILY PRN (Reason: Congestion) mirtazapine 30 mg tablet 30 mg PO HS gabapentin 300 mg capsule 300 mg PO BID fluticasone propionate [Flonase] 50 mcg/actuation [place],Suspension 2 spray INTRANASAL DAILY PRN (Reason: Congestion) Rx Instructions: administer into each nostril Discontinued fosinopril 40 mg tablet 40 mg PO QAM omeprazole 40 mg capsule,delayed release(DR/EC) 40 mg PO BID spironolactone 50 mg tablet 50 mg PO QAM Rx Instructions: PER PT "WAS TOLD TO STOP TAKING TODAY, 01/02/23". PT HAD AM DOSE. Discharge Orders: Discharge Order (Routine); Ordered 06/18/23 Ordered By: Effie Veliz/Other Patient Handouts: A1C, Kidney Disease Potassium in Diet, Kidney Disease Reducing Potassium, Hyperkalemia Dc Admission Data Admit Date/Time: 01/02/23 19:04 Attending Provider: Effie Rose Admit Provider: Effie Rose Primary Care Provider: Brennan Wolff Other Providers: Effie Rose ; Leila Crespo
[2023-01-05] MEDS ORDERED: Nursing to Pharmacy Communication SCH (14:45)
[2023-01-05] MEDS ORDERED: SODIUM ZIRCONIUM CYCLOSILICATE 10 GM PACKET PO ONE (16:45)
== END 2023-01-05 16:01 | disposition home or self-care (01) | DRG 684 ==
LOC: ED 16:13 → 2N 19:04

== ENCOUNTER 2024-06-03 08:34 | Inpatient (IN) ==
--- NOTE | 2024-05-05 12:44 | PAT Medication Instructions ---
Medication Instructions Date of Service May 05, 2024 Home Medications Medication Instructions Recorded albuterol sulfate 90 mcg/actuation 90 mcg inhalation Q4H PRN 05/27/22 aerosol inhaler Shortness Of Breath #3 grams cyclobenzaprine 10 mg tablet 10 mg PO Q8H PRN muscle spasm #30 01/05/23 tabs magnesium chloride 64 mg 64 mg PO BID #60 tabs 01/05/23 (magnesium chloride) tablet,delayed release (Mag 64) atorvastatin 80 mg tablet 80 mg PO PM cholecalciferol (vitamin D3) 50 mcg (2,000 unit) tablet 2,000 unit PO QAM fluvoxamine 100 mg tablet 50 mg PO BID doxazosin 4 mg tablet 4 mg PO QAM albuterol sulfate 90 mcg/actuation aerosol inhaler 90 mcg inhalation Q4H PRN Shortness Of Breath cetirizine 10 mg tablet (Zyrtec) 10 mg PO DAILY PRN Congestion fluticasone propionate 50 mcg/actuation nasal spray,suspension 2 spray intranasal DAILY PRN Congestion gabapentin 300 mg capsule 300 mg PO UD mirtazapine 30 mg tablet 30 mg PO HS cyclobenzaprine 10 mg tablet 10 mg PO Q8H PRN muscle spasm magnesium chloride 64 mg (magnesium chloride) tablet,delayed release (Mag 64) 64 mg PO BID carvedilol 12.5 mg tablet 12.5 mg PO BID cholecalciferol (vitamin D3) 50 mcg (2,000 unit) tablet 50 mcg PO QAM famotidine 20 mg tablet 20 mg PO QAM pantoprazole 40 mg tablet,delayed release 40 mg PO QAM spironolactone 25 mg tablet 25 mg PO QAM zinc 10 mg tablet 10 mg PO DAILY STOP taking 2 weeks before surgery zinc 10 mg tablet 10 mg PO DAILY DO NOT take the morning of surgery cholecalciferol (vitamin D3) 50 mcg (2,000 unit) tablet 2,000 unit PO QAM cetirizine 10 mg tablet (Zyrtec) 10 mg PO DAILY PRN Congestion magnesium chloride 64 mg (magnesium chloride) tablet,delayed release (Mag 64) 64 mg PO BID cholecalciferol (vitamin D3) 50 mcg (2,000 unit) tablet 50 mcg PO QAM spironolactone 25 mg tablet 25 mg PO QAM Take morning of surgery With a small sip of water, OTHERWISE NOTHING TO EAT OR DRINK AFTER MIDNIGHT: doxazosin 4 mg tablet 4 mg PO QAM albuterol sulfate 90 mcg/actuation aerosol inhaler 90 mcg inhalation Q4H PRN Shortness Of Breath (use if needed; please bring with you to hospital day of surgery if possible) fluticasone propionate 50 mcg/actuation nasal spray,suspension 2 spray intranasal DAILY PRN Congestion (if needed) fluvoxamine 100 mg tablet 50 mg PO BID gabapentin 300 mg capsule 300 mg PO UD cyclobenzaprine 10 mg tablet 10 mg PO Q8H PRN muscle spasm (if needed) carvedilol 12.5 mg tablet 12.5 mg PO BID famotidine 20 mg tablet 20 mg PO QAM pantoprazole 40 mg tablet,delayed release 40 mg PO QAM Take evening before surgery atorvastatin 80 mg tablet 80 mg PO PM fluvoxamine 100 mg tablet 50 mg PO BID albuterol sulfate 90 mcg/actuation aerosol inhaler 90 mcg inhalation Q4H PRN Shortness Of Breath (if needed) cetirizine 10 mg tablet (Zyrtec) 10 mg PO DAILY PRN Congestion (if needed) fluticasone propionate 50 mcg/actuation nasal spray,suspension 2 spray intranasal DAILY PRN Congestion (if needed) gabapentin 300 mg capsule 300 mg PO UD mirtazapine 30 mg tablet 30 mg PO HS cyclobenzaprine 10 mg tablet 10 mg PO Q8H PRN muscle spasm (if needed) magnesium chloride 64 mg (magnesium chloride) tablet,delayed release (Mag 64) 64 mg PO BID carvedilol 12.5 mg tablet 12.5 mg PO BID Other Notes If you have any questions please call us at [phone] or [phone] or [phone] or [phone]
--- NOTE | 2024-05-12 13:27 | Anesthesiology Consultation ---
Date of Service May 12, 2024 Assessment & Plan (1) Encounter for pre-operative examination: - Infectious disease screening: Per assessment on 05/12/24- No known recent infectious disease contacts or current infectious disease symptoms. - PCP visit (05/11/24): "Patient currently medically optimized. Low to moderate risk for perioperative complication related to chronic comorbidities however appropriate surgical candidate per age. Okay to proceed As scheduled with back surgery.. Patient was counseled to take blood pressure medications with sips of water the morning of procedure.." Patient subsequently seen at [facility] 05/12/2024- clarified perioperative BP med instructions: Patient advised to continue beta anel as directed perioperatively and advised to hold spironolactone AM DOS- voiced understanding. - PCP note (05/11/24): "Low to moderate risk.. Patient is cleared for scheduled surgery" Chart Review Chart Review: Acceptable Risk for Surgery and Patient seen in Pre Admission Testing Teaching & Discussion Pre-Anesthesia Teaching/Discussion Notes: Instructed NPO after midnight before surgery,except medications with 15 cc of water. Medication instructions provided according to the [facility] guidelines. History Surgery Operation Date: 06/03/24 07:45 Proposed Procedures p T12-L2 Decompression, T11-L2 Fusion, Removal L2 Screw, Spinal Cord Monitioring - Gian Rock, Height/Weight Height: 5 ft 9 in Weight: 100.5 kg Allergies Allergy/AdvReac Type Severity Reaction Status Date / Time amlodipine Allergy Intermediate Hives Verified 05/04/24 11:08 nizatidine Allergy Intermediate Ankle Verified 05/12/24 13:28 swelling simvastatin Allergy Intermediate Hives Verified 05/04/24 11:08 Medications Home Medications Medication Instructions Recorded Confirmed Last Taken atorvastatin 80 mg tablet 80 mg PO PM 03/08/19 05/04/24 01/01/23 cholecalciferol (vitamin D3) 50 2,000 unit PO QAM 03/08/19 05/04/24 01/02/23 mcg (2,000 unit) tablet fluvoxamine 100 mg tablet 50 mg PO BID 03/08/19 05/04/24 01/02/23 08:00 doxazosin 4 mg tablet 4 mg PO QAM 10/18/20 05/04/24 01/02/23 albuterol sulfate 90 mcg/actuation 90 mcg inhalation Q4H PRN 05/27/22 05/04/24 Unknown aerosol inhaler Shortness Of Breath #3 grams cetirizine 10 mg tablet (Zyrtec) 10 mg PO DAILY PRN Congestion 01/02/23 05/04/24 Unknown fluticasone propionate 50 2 spray intranasal DAILY PRN 01/02/23 05/04/24 Unknown mcg/actuation nasal Congestion spray,suspension gabapentin 300 mg capsule 300 mg PO UD 01/02/23 05/04/24 01/02/23 08:00 mirtazapine 30 mg tablet 30 mg PO HS 01/02/23 05/04/24 01/01/23 cyclobenzaprine 10 mg tablet 10 mg PO Q8H PRN muscle spasm #30 01/05/23 05/04/24 Unknown tabs magnesium chloride 64 mg 64 mg PO BID #60 tabs 01/05/23 05/04/24 Unknown (magnesium chloride) tablet,delayed release (Mag 64) carvedilol 12.5 mg tablet 12.5 mg PO BID 05/04/24 05/04/24 Unknown cholecalciferol (vitamin D3) 50 50 mcg PO QAM 05/04/24 05/04/24 Unknown mcg (2,000 unit) tablet famotidine 20 mg tablet 20 mg PO QAM 05/04/24 05/04/24 Unknown pantoprazole 40 mg tablet,delayed 40 mg PO QAM 05/04/24 05/04/24 Unknown release spironolactone 25 mg tablet 25 mg PO QAM 05/04/24 05/04/24 Unknown zinc 10 mg tablet 10 mg PO DAILY 05/04/24 05/04/24 Unknown Past Medical History Medical History Actinic keratitis Anxiety Arthritis Asthma Cardiac murmur Patient told once remotely years ago, not told otherwise No significant valvular disease per 2011 DSE Chronic obstructive pulmonary disease CKD (chronic kidney disease) DDD (degenerative disc disease), cervical GERD (gastroesophageal reflux disease) Hiatal hernia History of blood clots Left hip surgery (had a blood clot as a child removed) No clots/issues since Hyperlipidemia Hypertension Lung mass Told by different physicians that mass was possibly r/t lung cancer (did not have official biopsy) > had subsequent CT in which mass "shrunk" and was told that mass was not cancer- was treated with abx and "resolved" MDD (major depressive disorder) MGUS (monoclonal gammopathy of unknown significance) Per [facility] PCP records, patient unaware Obesity Exercise / Class Metabolic Activity II 4-5 Yardwork/Stairs/Walk up hill (one FS: No CP, no SOB) Past Family History Family History Father Heart disease Family/Other Colon cancer Mother Diabetes Past Surgical History Surgical History Fusion of spine (2009) Lumbar History of bronchoscopy History of colonoscopy History of esophagogastroduodenoscopy (EGD) History of hip surgery Left hip surgery (had a blood clot as a child removed) Hx of bilateral cataract extraction (2019) Past Anesthesia History No Hx of Anesthesia Complications and No Family Hx of Anesthesia Complications History of PONV No Hx of PONV and No Hx of Motion Sickness Social History Smoking Status: Never smoker tobacco type: smokeless tobacco Do You Dip or Chew Tobacco: Yes (Chews 3/4 can of snuff per day (Advised none DOS)) Hx Alcohol Use: No (Quit 15 years ago) Hx Substance Use: No substance use type: does not use Review of Systems Patient denies chest pain, shortness of breath, dyspnea on exertion, fever, chills, cough, wheezing, palpitations. Physical Exam Vital Signs BP 120/73 P 83 TEMP 98.6 SP02 96%RA RESP 18 Physical Full cervical extension range of motion. Full TMJ range of motion. TMD > 3.5 finger breaths Mallampati Score II Dentition: intact, + crowns Lungs: clear throughout to auscultation Cardiac: regular rate and rhythm, no murmurs noted Spine: normal Carotid arteries: negative bruit Extremities: no LE edema Lab Results Anesthesia Preop Results Results Anesthesia Widget: WBC 7.14 K/ul (4.8-10.8) 05/12/24 Hgb 14.9 g/dl (14.0-18.0) 05/12/24 Hct 44.1 % (42.0-52.0) 05/12/24 Plt 199 K/uL (130-400) 05/12/24 PT 10.4 Seconds (9.0-12.0) 05/12/24 PTT 24 Seconds (21-31) 05/12/24 INR 1.0 (0.9-1.1) 05/12/24 Urine Color Dark Yellow 05/12/24 Urine Appearance Clear (Clear) 05/12/24 Urine pH 5.5 (4.5-7.5) 05/12/24 Urine Specific [place] 1.030 (1.000-1.030) 05/12/24 Urine Protein 1+ (Negative) H 05/12/24 Urine Glucose (UA) Negative (Negative) 05/12/24 Urine Ketones 1+ (Negative) H 05/12/24 Urine Blood Negative (Negative) 05/12/24 Urine Nitrite Negative (Negative) 05/12/24 Urine Bilirubin Negative (Negative) 05/12/24 Urine Urobilinogen Negative (Negative) 05/12/24 Urine Leukocyte Esterase Negative (Negative) 05/12/24 Urine WBC (Auto) 0-5 /hpf (0-5) 05/12/24 Urine RBC (Auto) 0-2 /hpf (0-2) 05/12/24 Urine Hyaline Casts (Auto) 3-5 /lpf (0-2) H 05/12/24 Urine Epithelial Cells (Auto) 0-2 /hpf (0-2) 05/12/24 Urine Bacteria (Auto) None Seen (None Seen) 05/12/24 Blood Type A Positive 05/12/24 Antibody Screen NEGATIVE 05/12/24 Testing Laboratory Results 05/05/24 SODIUM 139 POTASSIUM 4.7 CHLORIDE 98 CO2 29 BUN 15 CREATININE 1.4 GLUCOSE 110 HGBA1C 6.2% Electrocardiogram Date: 05/11/24 NSR at 67bpm. RBBB. Chest X-Ray Date: 05/12/24 FINDINGS: PA and lateral chest radiographs are compared to study dated 01/02/2023 and correlated with chest CT dated 12/08/2022. A hiatal hernia is noted. The heart is enlarged. The pulmonary vasculature is noncongested. Chronic interstitial thickening similar to previous. Scarring/atelectasis is noted at the lung bases. No airspace consolidation or pleural effusion is identified. There is no pneumothorax. The skeletal structures are osteopenic. The bony thorax appears intact. Degenerative changes noted in the spine. Fusion hardware is noted in the lumbar region. IMPRESSION: Cardiomegaly with no active disease in the chest.
[2024-06-03] MEDS ORDERED: MIDAZOLAM HCL 1 MG/ML 2ML VIAL ONE (08:39)
[2024-06-03] MEDS ORDERED: fentaNYL citrate PF 100 MCG/2 ML VIAL ONE (08:39)
[2024-06-03] MEDS ORDERED: ePHEDrine sulfate 50 MG/ML AMP IV PRN (09:15)
[2024-06-03] MEDS ORDERED: ATROPINE SULFATE 0.1 MG/ML 10ML SYR IV PRN (09:15)
[2024-06-03] MEDS: CeleBREX 200 MG CAP PO SCH (09:26)
[2024-06-03] MEDS: ACETAMINOPHEN 500 MG TAB PO SCH (09:26)
[2024-06-03] MEDS: GABAPENTIN 300 MG CAP PO SCH (09:27)
[2024-06-03] MEDS: LACTATED RINGER'S 1,000 ML IV SCH (09:27)
[2024-06-03] MEDS: LR 60ML/HR IV SCH (09:27)
--- NOTE | 2024-06-03 09:45 | History & Physical Bridge Note ---
Date of Service June 03, 2024 History & Physical Bridge Note I have examined the patient, reviewed the History & Physical and in the interval since the performance of the History & Physical I have noted the following changes of clinical significance: no changes noted
--- NOTE | 2024-06-03 09:46 | History & Physical Report ---
Date of Service June 03, 2024 Assessment & Plan (1) Neurogenic claudication due to lumbar spinal stenosis: Plan: T12-L2 decompression, T11-L2 fusion, removal L2 screw. History of Present Illness Chief Complaint: Back and leg pain Primary Care Provider: Brennan Wolff MD This is a 73-year-old male presents for chronic persistent back and leg pain a failed course of nonoperative care is here for surgical invention. Allergies Allergy/AdvReac Type Severity Reaction Status Date / Time amlodipine Allergy Intermediate Hives Verified 06/03/24 09:01 nizatidine Allergy Intermediate Ankle Verified 06/03/24 09:01 swelling simvastatin Allergy Intermediate Hives Verified 06/03/24 09:01 Home Medications Medication Instructions Recorded Confirmed Type atorvastatin 80 mg tablet 80 mg PO PM 03/08/19 06/03/24 History cholecalciferol (vitamin D3) 50 2,000 unit PO QAM 03/08/19 06/03/24 History mcg (2,000 unit) tablet fluvoxamine 100 mg tablet 50 mg PO BID 03/08/19 06/03/24 History doxazosin 4 mg tablet 4 mg PO QAM 10/18/20 06/03/24 History albuterol sulfate 90 mcg/actuation 90 mcg inhalation Q4H PRN 05/27/22 06/03/24 Rx aerosol inhaler Shortness Of Breath #3 grams cetirizine 10 mg tablet (Zyrtec) 10 mg PO DAILY PRN Congestion 01/02/23 06/03/24 History fluticasone propionate 50 2 spray intranasal DAILY PRN 01/02/23 06/03/24 History mcg/actuation nasal Congestion spray,suspension gabapentin 300 mg capsule 300 mg PO UD 01/02/23 06/03/24 History mirtazapine 30 mg tablet 30 mg PO HS 01/02/23 06/03/24 History cyclobenzaprine 10 mg tablet 10 mg PO Q8H PRN muscle spasm #30 01/05/23 06/03/24 Rx tabs magnesium chloride 64 mg 64 mg PO BID #60 tabs 01/05/23 06/03/24 Rx (magnesium chloride) tablet,delayed release (Mag 64) carvedilol 12.5 mg tablet 12.5 mg PO BID 05/04/24 06/03/24 History cholecalciferol (vitamin D3) 50 50 mcg PO QAM 05/04/24 06/03/24 History mcg (2,000 unit) tablet famotidine 20 mg tablet 20 mg PO QAM 05/04/24 06/03/24 History pantoprazole 40 mg tablet,delayed 40 mg PO QAM 05/04/24 06/03/24 History release spironolactone 25 mg tablet 25 mg PO QAM 05/04/24 06/03/24 History zinc 10 mg tablet 10 mg PO DAILY 05/04/24 06/03/24 History Past Med/Surg History Problem List (Updated 06/03/24 @ 09:46 by Gian Rock DO) Neurogenic claudication due to lumbar spinal stenosis Encounter for pre-operative examination Medical History Actinic keratitis Anxiety Arthritis Asthma Cardiac murmur Patient told once remotely years ago, not told otherwise No significant valvular disease per 2010 DSE Chronic obstructive pulmonary disease CKD (chronic kidney disease) DDD (degenerative disc disease), cervical GERD (gastroesophageal reflux disease) Hiatal hernia History of blood clots Left hip surgery (had a blood clot as a child removed) No clots/issues since Hyperlipidemia Hypertension Lung mass Told by different physicians that mass was possibly r/t lung cancer (did not have official biopsy) > had subsequent CT in which mass "shrunk" and was told that mass was not cancer- was treated with abx and "resolved" MDD (major depressive disorder) MGUS (monoclonal gammopathy of unknown significance) Per [facility] PCP records, patient unaware Obesity Surgical History Fusion of spine (2009) Lumbar History of bronchoscopy History of colonoscopy History of esophagogastroduodenoscopy (EGD) History of hip surgery Left hip surgery (had a blood clot as a child removed) Hx of bilateral cataract extraction (2019) Family History Father Heart disease Family/Other Colon cancer Mother Diabetes Social History Smoking Status: Never smoker Tobacco Type: Smokeless Tobacco (Dip or Chew) Second Hand Exposure: No; Do You Dip or Chew Tobacco: Yes (Chews 3/4 can of snuff per day (Advised none DOS)); Tobacco Cessation Education Requested by Patient: No Hx Alcohol Use: No (Quit 15 years ago) Hx Substance Use: No Preferred Language: Somali Communication Ability: Effective Artificial Intelligence Specialist Required: No Beliefs That Will Affect Care: None marital status: Current Living Situation: Spouse current occupational status: retired Other Information That Helps Us Care for You: No Feels Safe at Home: Yes Safety Concerns: Feels Safe At This Time Assistive Devices: None Physical Exam Physical Exam: Patient is alert and oriented Heart regular rhythm Lungs clear Results & Data Results & Data Vital Signs (Past 12 Hours) Vital Signs Temp Pulse Resp BP Pulse Ox O2 Del Method 06/03/24 08:51 36.7 C 65 20 149/90 H 92 Room Air
[2024-06-03] MEDS ORDERED: REMIFENTANIL HCL 1 MG VIAL IV ONE (10:03)
[2024-06-03] MEDS: ceFAZolin 2000MG 2,000 MG/15 ML SYR IV SCH ×2 (10:11→18:41)
[2024-06-03] MEDS ORDERED: LIDOCAINE 2% 2 ML VIAL/AMP(20MG/ML) INFIL ONE (10:32)
[2024-06-03] MEDS ORDERED: DEXAMETHASONE SOD INJ 4 MG/ML VIAL ONE (10:32)
[2024-06-03] MEDS ORDERED: ONDANSETRON INJ 2 MG/ML 2 ML VIAL ONE (10:32)
[2024-06-03] MEDS ORDERED: ROCURONIUM BROMIDE 10 MG/ML 5 ML VIAL IV ONE (10:32)
[2024-06-03] MEDS ORDERED: PROPOFOL IV EMULSION 10 MG/ML 20 ML VIAL IV ONE (10:32)
[2024-06-03] MEDS ORDERED: GLYCOPYRROLATE 0.2 MG/ML VIAL ONE ×2 (10:52→12:45)
[2024-06-03] MEDS ORDERED: ePHEDrine sulfate 50 MG/5 ML SYR ONE (10:54)
[2024-06-03] MEDS: BUPIVACAINE/EPINEPHRINE 0.25% 1:200,000 30 ML VIAL ONE (11:00)
[2024-06-03] MEDS: ceFAZolin 330 MG/ML 1 GM VIAL ONE (12:30)
[2024-06-03] MEDS ORDERED: ePHEDrine sulfate 50 MG/ML AMP ONE (12:31)
[2024-06-03] MEDS: FLOSEAL HEMOSTATIC MATRIX 10ML TOP ONE (12:43)
[2024-06-03] MEDS ORDERED: NEOSTIGMINE METHYLSULFATE 1 MG/ML 10ML VIAL ONE (12:45)
--- NOTE | 2024-06-03 12:50 | Operative Report ---
Post Operative Report Pre & Post Diagnosis Operation Date: 06/03/24 09:55 Pre-Op Diagnosis: Neurogenic Claudication due to Lumbar Spinal Stenosis T11-L2 Post-Op Diagnosis: Neurogenic Claudication due to Lumbar Spinal Stenosis T11-L2 I identified the patient and participated in the time-out.: Yes Procedure Operation Date: 06/03/24 09:55 Actual Procedures #1 removal of posterior instrumentation L2 pedicle screw and connector. #2 exploration of fusion L2-L3. #3 decompression T12-L1 L1-L2 with bilateral medial facetectomies and foraminotomies. #4 posterior spinal fusion T11-L2. #5 placed posterior instrumentation T11-T12 L1 with connectors at L2. #6 interbody fusion L1-L2. #7 placement of Spira 10 x 26 mm at L1-L2. #8 placement locally harvested morselized autograft and posterior gutters. #9 placement infuse collagen sponge, with Koros in the posterior lateral gutters and os design interbody space. #10 application of versa wrap over the exposed dura. Surgeon Gian Rock, DO Field Service Technician Poultry Shannan Olson Estimated Blood Loss 300 Findings See Below The patient is 5 foot 9 weighing over 101 kg a BMI of 33. Patient's body mass did contribute to significant technical difficulty with positioning exposure and the procedure itself. This at least 50% increased operative time. Specimens None Indications This is a 73-year-old male well-known to me the presents above-mentioned diagnosis of failed course of nonoperative care is here for surgical invention. Description of Procedure Patient was met with identified informed consent obtained. Patient was then taken to the operative suite underwent intubation placed in a prone position on the Richard table on top of the Panda frame. All bony promises well-padded eyes inspected to ensure no external precipice upon them. This point the thoracolumbar spine was prepped and draped in normal sterile fashion. Sharp dissection with the assistance of Bovie cautery from down to and exposing the lamina transverse processes of T11 T12-L1 and instrumentation at L2-L3. I then proceeded to move the pedicle screw and connector at L2. Explored the fusion mass at L2-L3 noting it to be mature and intact. Then performed a complete laminectomy of L1 with bilateral medial facetectomies and foraminotomies addressing severe spinal stenosis followed by complete laminectomy of T12 with bilateral medial facetectomies and foraminotomies addressing severe spinal stenosis. Pedicle screws were then placed in T11 T12-L1 bilaterally with assistance of fluoroscopy. By way of a transforaminal approach on the right complete discectomy of L1-L2 was performed endplates guarded to subcortical bleeding bone and a 10 x 26 mm Spira cage filled with os design bone graft tapped in position. Connectors were then attached to the proximal aspect of the previous tien. These were barrel connectors. And then attached a new tien from T12 to the nectars bilaterally. Transverse processes of T11-T12 L1-L2 burred to subcortical bleeding bone. Infuse collagen sponge, with Koros and local autograft placed in the posterior gutters. Versa wrap placed over the exposed dura. 15 round SREEDHAR drain inserted. The incision then closed with 1 Vicryl fascia 2-0 Vicryl subcutaneously and 4 Monocryl for final skin closure. Steri- Strips sterile dressing placed. Patient waken taken to PACU stable condition. Please note spinal cord monitoring was utilized out the procedure no changes noted. Shannan Olson was present at the entire surgery and while the patient positioning complex portion of the surgery and final skin closure. Im ordering 20 grams of Triple [place] Collagen Powder ([employer] [id number]) to treat an incision wound that was caused by a spine procedure. The incision is approximately 2 cm(W) x 4 cm(L) into the joint (D) in size and is a full thickness wound. Triple [place] collagen comes in 1 gram packets so 20 packets were ordered. Given the size of the wound, with light to moderate exudate I chose to order a 20 day supply. The patient will be provided instructions for proper application of the collagen wound kit. The patient will be asked to apply the collagen powder daily and then cover it with sterile dressings dispensed. Collagen was selected as I expect the collagen to attract monocytes and fibroblasts, act as a sacrificial substrate for MMPs, and ultimately proved a matrix for tissue and vessel growth. The collagen will act as a primary dressing in this scenario. It is medically necessary for proper healing of these wounds to improve bioavailability and contact with each wound surface, this is also to help prevent infection of wounds and promote healing ultimately leading to a better healing outcome and limit the risk of infection. I attest to the content of the Intraoperative Record and any orders documented therein. Any exceptions are noted below.
--- NOTE | 2024-06-03 13:04 | Fluoroscopy Report ---
FL lumbar spine 2-3V CLINICAL HISTORY: T12-L2 DECOMPRESSION T11-L2 FUSION COMPARISON STUDY: None FLUOROSCOPY TIME: 36.6 seconds FLUOROSCOPY IMAGES: 2 EXPOSURE DOSE: 26.72 mGy FINDINGS: Interbody tien and screw fusion hardware is noted with the imaged hardware appearing intact. Single level discectomy change also noted. Exact numbering cannot be confirmed secondary to magnific ation of the images. Note that the images were submitted following completion of the surgery. No unex pected opaque foreign bodies identified. IMPRESSION: Fluoroscopic assistance as above. ACT 112: Negative or not required by law. Electronically signed by: Stefan Pace M.D. 06/03/2024 1:02 PM
[2024-06-03] MEDS: HYDROmorphone INJ 2 MG/ML SYR/VIAL IV PRN (13:30)
--- NOTE | 2024-06-03 14:04 | Anesthesiology Progress Note ---
Date of Service June 03, 2024 Anesthesia Post Procedure Vital Signs Vital Signs: Temp Pulse Pulse Resp BP Pulse Ox O2 Del Method 06/03/24 13:13 36.6 C 80 17 133/71 91 Oxymask 06/03/24 08:51 36.7 C 65 20 149/90 H 92 Room Air O2 Flow Rate 06/03/24 13:13 8 06/03/24 08:51 Pain Intensity Back: Pain Intensity: 3 Transfer of Care Handoff Completed per policy Notes Mental Status: alert / awake / arousable Patient Amnestic to Procedure: Yes Nausea / Vomiting: adequately controlled Pain: adequately controlled Airway Patency, RR, SpO2: stable & adequate BP & HR: stable & adequate Hydration State: stable & adequate Anesthetic Complications: no major complications apparent
[2024-06-03] MEDS ORDERED: LORazepam 2 MG/1 ML VIAL IV PRN (14:47)
[2024-06-03] MEDS ORDERED: PROMETHAZINE 12.5 MG/50.5 ML BAG IV PRN (14:47)
[2024-06-03] MEDS ORDERED: NALOXONE HCL 0.4 MG/1 ML VIAL/CARP IV PRN (14:47)
[2024-06-03] MEDS ORDERED: MAGNESIUM HYDROXIDE SUSP 30 ML UDC PO PRN (14:47)
[2024-06-03] MEDS ORDERED: ONDANSETRON INJ 2 MG/ML 2 ML VIAL IV PRN (14:47)
[2024-06-03] MEDS ORDERED: DO NOT ADMINISTER PNEUMOCOCCAL VACCINE PRN (14:47)
[2024-06-03] MEDS ORDERED: HYDROmorphone INJ 1 MG/ML SYRINGE IV PRN (14:47)
[2024-06-03] MEDS ORDERED: hydrOXYzine HCl 25 MG TAB PO PRN (14:47)
[2024-06-03] MEDS ORDERED: LORazepam 0.5 MG TAB PO PRN (14:47)
[2024-06-03] MEDS ORDERED: ACETAMINOPHEN 500 MG TAB PO PRN (14:47)
[2024-06-03] MEDS ORDERED: DO NOT ADMINISTER FLU VACCINE PRN (14:47)
[2024-06-03] MEDS ORDERED: bisacodyL 10 MG SUPP PR PRN (14:47)
[2024-06-03] MEDS ORDERED: diphenhydrAMINE Capsule 25 MG CAP PO PRN (14:47)
[2024-06-03] MEDS ORDERED: METOCLOPRAMIDE HCL INJ 5 MG/ML 2 ML VIAL IV PRN (14:47)
[2024-06-03] MEDS ORDERED: ALBUTEROL HFA 8 GM INHALER INH PRN (14:47)
[2024-06-03] MEDS ORDERED: ACETAMINOPHEN 1,000 MG/100 ML VIAL IV PRN (14:47)
[2024-06-03] MEDS ORDERED: CETIRIZINE HCL 10 MG TABLET PO PRN (14:47)
[2024-06-03] MEDS ORDERED: ALUMINUM/MAGNESIUM SUSP 30 ML UDC PO PRN (14:47)
[2024-06-03] MEDS ORDERED: FAMOTIDINE 20 MG TAB PO PRN (14:47)
[2024-06-03] MEDS ORDERED: HYDROmorphone INJ 0.5 MG/0.5 ML SYR IV PRN (14:47)
[2024-06-03] MEDS ORDERED: SOD PHOSPHATE/SOD BIPHOSPHATE ENEMA 132 ML BTL PR PRN (14:47)
[2024-06-03] MEDS ORDERED: ONDANSETRON 4 MG OD TAB PO PRN (14:47)
[2024-06-03] MEDS ORDERED: traMADol HCL 50 MG TABLET PO PRN (14:47)
--- NOTE | 2024-06-03 16:06 | Consultation ---
Date of Consultation June 03, 2024 Assessment & Plan (1) Neurogenic claudication due to lumbar spinal stenosis: (2) Hypertension: (3) Hyperlipidemia: (4) CKD (chronic kidney disease): Plan This is a 73-year-old male who has significant past medical history of HTN, HLD, prediabetes, mild persistent asthma, CKD stage III, BPH, cyst of left kidney, sacroiliitis, monoclonal gammopathy, depression with anxiety who presents for elective procedure by Dr. Rock. neurogenic claudication due to lumbar spinal stenosis status post T12-L2 decompression and T11-L2 fusion, POD #0 EBL 300 mL, ANDER drain 115 mL preop hemoglobin 14.9, monitor postoperatively pain/wound management per orthopedics activity and therapy as prescribed by orthopedics hypertension: Chronic, stable on Coreg and Aldactone, continue with parameters New RBBB on ecg/Systolic Murmur on exam: last echo 2008, normal LVEF, aortic valve sclerosis, suspect murmur is progression of this, given ecg changes will update echo in a.m. he is w/o cardiac complaint hyperlipidemia: Chronic, stable continue statin CKD-3 - baseline cr 1.4, avoid nephrotoxic agents, monitor bmp Pre diabetes - a1c 6.2, monitor fasting blood glucose depression/anxiety: Chronic, stable, continue home meds DVT prophylaxis: Per primary full code PCP: Dr. Wolff dispo: Per primary Thank you for this consultation. We will follow the patient with you during their hospital stay. You can reach a member of the [facility] Hospitalist Team 10/02 via hospitalist role on tiger text. patient was seen and examined in collaboration with, Dr. Ronal joshua, please addendum I spent a total of 50 minutes reviewing notes, outpatient records, labs, medication, coordinating, documenting and providing care for this patient excluding time spent in the performance of separately billed services. Supervising Physician Co-Signing Physician Notes Patient was seen and examined at bedside as medical management status post spine surgery. Patient hemodynamically stable postsurgery. Patient not able to comment on improvement of his radicular signs and symptoms yet. Reports operative site pain under control. DVT prophylaxis/PT and OT/pain management per primary team. Continue other home medications. On exam: GENERAL: Alert and oriented x3. NAD, on RA. HEENT: No pallor, no icterus. Pupils equal, round and reactive to light. Oral mucosa moist. NECK: No JVD, no neck masses. HEART: S1 and S2 heard. Regular rate and rhythm. No murmur, no gallop. RESPIRATORY SYSTEM: Normal AP diameter. No accessory muscle use. No wheezing, no crackles. ABDOMEN: Soft, bowel sounds present, nontender, no distention. CENTRAL NERVOUS SYSTEM: No facial droop. Speech is clear. Obeys simple commands. Moves extremities. EXTREMITIES: No edema, no erythema seen. Mid to lower back with clean dressing without soakage, ANDER drain with moderate serosanguineous collection noted. Distal neurovascular status WNL. I have seen and examined the patient and have discussed the case with the provider above. I agree with the assessment and plan as stated. Time spent: 15 min History of Present Illness Requesting Physician: Dr. Rock Reason for Consultation: Postop medical management Attending Physician: Gian Rock DO History of Present Illness This is a 73-year-old male who has significant past medical history of HTN, HLD, prediabetes, mild persistent asthma, CKD stage III, BPH, cyst of left kidney, sacroiliitis, monoclonal gammopathy, depression with anxiety who presents for elective procedure by Dr. Rock. He underwent T12-L2 decompression and T11-L2 fusion, removal of L2 screw, interbody fusion of L1-L2. He tolerated the procedure well. History was obtained by patient as well as outpatient chart review. He follows with Dr. Wolff. Post operatively he has no complaints. He feels like he has to urinate, but has a shah catheter. He denies f/c/s, chest pain, sob, n/v/d, abd pain. He has some mild incisional back pain. Allergies Allergy/AdvReac Type Severity Reaction Status Date / Time amlodipine Allergy Intermediate Hives Verified 06/03/24 09:01 nizatidine Allergy Intermediate Ankle Verified 06/03/24 09:01 swelling simvastatin Allergy Intermediate Hives Verified 06/03/24 09:01 Home Medications Medication Instructions Recorded Confirmed Type atorvastatin 80 mg tablet 80 mg PO PM 03/08/19 06/03/24 History cholecalciferol (vitamin D3) 50 2,000 unit PO QAM 03/08/19 06/03/24 History mcg (2,000 unit) tablet fluvoxamine 100 mg tablet 50 mg PO BID 03/08/19 06/03/24 History doxazosin 4 mg tablet 4 mg PO QAM 10/18/20 06/03/24 History albuterol sulfate 90 mcg/actuation 90 mcg inhalation Q4H PRN 05/27/22 06/03/24 Rx aerosol inhaler Shortness Of Breath #3 grams cetirizine 10 mg tablet (Zyrtec) 10 mg PO DAILY PRN Congestion 01/02/23 06/03/24 History fluticasone propionate 50 2 spray intranasal DAILY PRN 01/02/23 06/03/24 History mcg/actuation nasal Congestion spray,suspension gabapentin 300 mg capsule 300 mg PO UD 01/02/23 06/03/24 History mirtazapine 30 mg tablet 30 mg PO HS 01/02/23 06/03/24 History cyclobenzaprine 10 mg tablet 10 mg PO Q8H PRN muscle spasm #30 01/05/23 06/03/24 Rx tabs magnesium chloride 64 mg 64 mg PO BID #60 tabs 01/05/23 06/03/24 Rx (magnesium chloride) tablet,delayed release (Mag 64) carvedilol 12.5 mg tablet 12.5 mg PO BID 05/04/24 06/03/24 History cholecalciferol (vitamin D3) 50 50 mcg PO QAM 05/04/24 06/03/24 History mcg (2,000 unit) tablet famotidine 20 mg tablet 20 mg PO QAM 05/04/24 06/03/24 History pantoprazole 40 mg tablet,delayed 40 mg PO QAM 05/04/24 06/03/24 History release spironolactone 25 mg tablet 25 mg PO QAM 05/04/24 06/03/24 History zinc 10 mg tablet 10 mg PO DAILY 05/04/24 06/03/24 History Patient History Medical History History of blood clots Left hip surgery (had a blood clot as a child removed) No clots/issues since Obesity Lung mass Told by different physicians that mass was possibly r/t lung cancer (did not have official biopsy) > had subsequent CT in which mass "shrunk" and was told that mass was not cancer- was treated with abx and "resolved" DDD (degenerative disc disease), cervical Asthma CKD (chronic kidney disease) MDD (major depressive disorder) MGUS (monoclonal gammopathy of unknown significance) Per [facility] PCP records, patient unaware GERD (gastroesophageal reflux disease) Anxiety Cardiac murmur Patient told once remotely years ago, not told otherwise No significant valvular disease per 2010 DSE Hypertension Hyperlipidemia Chronic obstructive pulmonary disease Hiatal hernia Arthritis Actinic keratitis Surgical History History of bronchoscopy Hx of bilateral cataract extraction (2019) Fusion of spine (2009) Lumbar History of esophagogastroduodenoscopy (EGD) History of colonoscopy History of hip surgery Left hip surgery (had a blood clot as a child removed) Family History Father Heart disease Family/Other Colon cancer Mother Diabetes Social History Smoking Status: Never smoker Tobacco Type: Smokeless Tobacco (Dip or Chew) Second Hand Exposure: No; Do You Dip or Chew Tobacco: Yes (Chews 3/4 can of snuff per day (Advised none DOS)); Tobacco Cessation Education Requested by Patient: No Hx Alcohol Use: No (Quit 15 years ago) Hx Substance Use: No Preferred Language: Panamanian Communication Ability: Effective Test Center Administrator Required: No Beliefs That Will Affect Care: None marital status: Current Living Situation: Spouse current occupational status: retired Other Information That Helps Us Care for You: No Feels Safe at Home: Yes Safety Concerns: Feels Safe At This Time Assistive Devices: None Review of Systems Review of Systems: All systems reviewed & are unremarkable except as noted in HPI & below Physical Exam 2 Physical Exam: Constitutional: WD/WN, vitals as above, NAD, sitting up in bed, pleasant, conversing easily Head: Normocephalic, Atraumatic Eyes: PERRL, conjunctivae normal, anicteric sclerae ENMT: external ear and nose normal, oropharynx normal Neck: trachea midline, no thyromegaly normal visual inspection Respiratory: normal respiratory effort, lungs clear to auscultation, no wheeze, rales, rhonchi. Normal insp/exp effort, no accessory muscle use Cardiovascular: RRR, 2/6 WHIT LUSB, no edema Vessels: no JVD or carotid bruit Chest: normal inspection of chest Abdomen: normal bowel sounds, soft, nontender, no hepatosplenomegaly Musculoskeletal: no cyanosis or clubbing, extremities motor strength 5/5, lumbar dressing CDI, Ander drain with serosang drainage Skin: no rashes, warm and dry normal turgor Neurologic: PERRL, EOMI, accommodation nl, no face palsy, no dysarthria CN's II-XI intact bilaterally and moves all extremities Psychiatric: A+Ox3, euthymic affect Lymphatic: no cervical or axillary lymphadenopathy : deferred Results & Data Vital Signs (Past 12 Hours) Vital Signs Temp Pulse Pulse Resp BP Pulse Ox O2 Del Method 06/03/24 15:41 36.4 C L 54 L 18 117/65 94 Room Air 06/03/24 15:20 36.5 C 56 L 18 116/75 95 Nasal Cannula 06/03/24 14:26 36.7 C 60 16 116/66 93 Nasal Cannula 06/03/24 13:13 36.6 C 80 17 133/71 91 Oxymask 06/03/24 08:51 36.7 C 65 20 149/90 H 92 Room Air O2 Flow Rate 06/03/24 15:41 06/03/24 15:20 2 06/03/24 14:26 2 06/03/24 13:13 8 06/03/24 08:51 Laboratory Results preop labs from 05/12/2024 were reviewed and independently interpreted by myself including a CBC, PT/INR and urinalysis. Diagnostic Findings Lumbar Spine X-Ray 06/03/24 09:55 FL lumbar spine 2-3V CLINICAL HISTORY: T12-L2 DECOMPRESSION T11-L2 FUSION COMPARISON STUDY: None FLUOROSCOPY TIME: 36.6 seconds FLUOROSCOPY IMAGES: 2 EXPOSURE DOSE: 26.72 mGy FINDINGS: Interbody tien and screw fusion hardware is noted with the imaged hardware appearing intact. Single level discectomy change also noted. Exact numbering cannot be confirmed secondary to magnification of the images. Note that the images were submitted following completion of the surgery. No unexpected opaque foreign bodies identified. IMPRESSION: Fluoroscopic assistance as above. ACT 112: Negative or not required by law. Electronically signed by: Stefan Pace M.D. 06/03/2024 1:02 PM Medications Administered Current Inpatient Medications Acetaminophen (Acetaminophen 500 Mg Tab) 1,000 mg PO PREOP KIMI Stop: 06/03/24 18:00 Last Admin: 06/03/24 09:26 Dose: 1,000 mg Acetaminophen (Acetaminophen 500 Mg Tab) 1,000 mg PO Q8H PRN PRN Reason: MILD Pain Scale 1,2,3 & Pre PT Stop: 07/03/24 14:46 Al Hydrox/Mg Hydrox/Simethicone (Aluminum/Magnesium Susp 30 Ml Udc) 30 ml PO Q6H PRN PRN Reason: Dyspepsia Stop: 07/03/24 14:46 Albuterol (Albuterol Hfa 8 Gm Inhaler) 1 puffs INH Q4H PRN PRN Reason: Shortness Of Breath Stop: 07/03/24 14:46 Atorvastatin Calcium (Atorvastatin 40 Mg Tab) 80 mg PO PM KIMI Stop: 07/03/24 20:59 Atropine Sulfate (Atropine Sulfate 0.1 Mg/Ml 10ml Syr) 0.5 mg IV Q1M PRN PRN Reason: PACU Use-HR<40 &/or Bradycardi Stop: 06/03/24 17:15 Bisacodyl (Bisacodyl 10 Mg Supp) 10 mg VT DAILY PRN PRN Reason: Constipation Stop: 07/03/24 14:46 Carvedilol (Carvedilol 12.5 Mg Tab) 12.5 mg PO BIDM KIMI Stop: 07/03/24 16:59 Celecoxib (Celebrex 200 Mg Cap) 200 mg PO PREOP KIMI Stop: 06/03/24 18:00 Last Admin: 06/03/24 09:26 Dose: 200 mg Cetirizine HCl (Cetirizine Hcl 10 Mg Tablet) 10 mg PO DAILY PRN PRN Reason: Congestion Stop: 07/03/24 14:46 Diphenhydramine HCl (Diphenhydramine Capsule 25 Mg Cap) 25 mg PO Q6H PRN PRN Reason: Allergic Rhinitis/Insomnia Stop: 07/03/24 14:46 Doxazosin Mesylate (Doxazosin Mesylate 4 Mg Tab) 4 mg PO QAM KIMI Stop: 07/04/24 08:59 Ephedrine Sulfate (Ephedrine Sulfate 50 Mg/Ml Amp) 5 mg IV Q5M PRN PRN Reason: PACU Use Only-SBP<90 mmHg Stop: 06/03/24 17:15 Famotidine (Famotidine 20 Mg Tab) 20 mg PO QAM KIMI Stop: 07/04/24 08:59 Famotidine (Famotidine 20 Mg Tab) 20 mg PO Q12H PRN PRN Reason: Dyspepsia Stop: 07/03/24 14:46 Fluvoxamine Maleate (Fluvoxamine Maleate 50 Mg Tab) 50 mg PO BID KIMI Stop: 07/03/24 20:59 Gabapentin (Gabapentin 300 Mg Cap) 300 mg PO PREOP KIMI Stop: 06/03/24 18:00 Last Admin: 06/03/24 09:27 Dose: Not Given Gabapentin (Gabapentin 300 Mg Cap) 300 mg PO QAM [facility] Stop: 07/04/24 08:59 Hydromorphone HCl (Hydromorphone Inj 2 Mg/Ml Syr/Vial) 0.5 mg IV Q5M PRN PRN Reason: PACU Use Only-Pain Stop: 06/03/24 17:15 Last Admin: 06/03/24 13:40 Dose: 0.5 mg Hydromorphone HCl (Hydromorphone Inj 0.5 Mg/0.5 Ml Syr) 0.5 mg IV Q3H PRN PRN Reason: MODERATE Pain (Scale 4,5,6) & Pre PT Stop: 06/17/24 14:46 Hydromorphone HCl (Hydromorphone Inj 1 Mg/Ml Syringe) 1 mg IV Q3H PRN PRN Reason: SEVERE Pain (Scale 7,8,9,10) Stop: 06/17/24 14:46 Hydroxyzine HCl (Hydroxyzine Hcl 25 Mg Tab) 25 mg PO Q8H PRN PRN Reason: Anxiety Stop: 07/03/24 14:46 Lactated Ringer's (Lr) 1,000 mls @ 15 mls/hr IV .Q24H KIMI Stop: 06/04/24 05:59 Last Admin: 06/03/24 09:27 Dose: Not Given Lactated Ringer's (Lr) 1,000 mls @ 60 mls/hr IV .[id number] KIMI Stop: 06/03/24 22:39 Last Infusion: 06/03/24 10:09 Dose: Infused Cefazolin Sodium (Ancef 2000mg) 2,000 mg in 15 mls @ 3.75 mls/min IV PREOP KIMI; Protocol Stop: 06/03/24 18:00 Last Admin: 06/03/24 10:11 Dose: 3.75 mls/min Acetaminophen (Ofirmev) 1,000 mg in 100 mls @ 400 mls/hr IV Q8H PRN PRN Reason: Pain Rating 1-3 & Pre PT Stop: 06/04/24 14:47 Cefazolin Sodium (Ancef 2000mg) 2,000 mg in 15 mls @ 3.75 mls/min IV Q8H KIMI; Protocol Stop: 06/04/24 03:03 Promethazine HCl (Phenergan) 12.5 mg in 50.5 mls @ 202 mls/hr IV Q6H PRN PRN Reason: Nausea And Vomiting Stop: 07/03/24 14:46 Dexamethasone 6 mg/ Syringe 1.5 mls @ 1 mls/min IV DAILY KIMI Stop: 06/06/24 09:02 Influenza Virus Vaccine Quadrival (Do Not Administer Flu Vaccine) 1 each N/A PRN PRN PRN Reason: Notification Stop: 07/03/24 14:46 Lorazepam (Lorazepam 0.5 Mg Tab) 0.5 mg PO Q8H PRN PRN Reason: Sedation/Anxiety Stop: 07/03/24 14:46 Lorazepam (Lorazepam 2 Mg/1 Ml Vial) 0.5 mg IV Q8H PRN PRN Reason: Sedation/Anxiety Stop: 07/03/24 14:46 Magnesium Chloride (Magnesium Chloride W/Calcium 64mg Delayed Rel Tab) 64 mg PO BID [facility] Stop: 07/03/24 20:59 Magnesium Hydroxide (Magnesium Hydroxide Susp 30 Ml Udc) 30 ml PO Q24H PRN PRN Reason: Constipation Stop: 07/03/24 14:46 Metoclopramide HCl (Metoclopramide Hcl Inj 5 Mg/Ml 2 Ml Vial) 10 mg IV Q6H PRN PRN Reason: Nausea &/or Vomiting Stop: 07/03/24 14:46 Mirtazapine (Mirtazapine Tab 15 Mg Tab) 30 mg PO HS [facility] Stop: 07/03/24 20:59 Naloxone HCl (Naloxone Hcl 0.4 Mg/1 Ml Vial/Carp) 0.1 mg IV Q5M PRN PRN Reason: Oversedation/Resp depression Stop: 07/03/24 14:46 Ondansetron HCl (Ondansetron Inj 2 Mg/Ml 2 Ml Vial) 4 mg IV Q6H PRN PRN Reason: Nausea &/or Vomiting Stop: 07/03/24 14:46 Ondansetron HCl (Ondansetron 4 Mg Od Tab) 4 mg PO Q6H PRN PRN Reason: Nausea Stop: 07/03/24 14:46 Oxycodone HCl (Oxycodone Hcl Ir 5 Mg Tab (Immediate Release)) 5 - 10 mg PO Q4H PRN PRN Reason: Pain & Pre PT Stop: 06/17/24 14:46 Pantoprazole Sodium (Pantoprazole 40 Mg Tab) 40 mg PO QAM KIMI Stop: 07/04/24 08:59 Pneumococcal Polyvalent Vaccine (Do Not Administer Pneumococcal Vaccine) 1 each N/A PRN PRN PRN Reason: Notification Stop: 07/03/24 14:46 Polyethylene Glycol (Polyethylene (Miralax) 17 Gm Pack) 17 gm PO Q6 KIMI Stop: 07/04/24 05:59 Senna/Docusate Sodium (Docusate Sodium/Senna 50/8.6mg Tab) 2 tab PO HS KIMI Stop: 07/03/24 20:59 Sodium Biphosphate/Sodium Phosphate (Sod Phosphate/Sod Biphosphate Enema 132 Ml Btl) 132 ml VT ONE PRN PRN Reason: Constipation Stop: 07/03/24 14:46 Spironolactone (Spironolactone 25 Mg Tab) 25 mg PO QAM [facility] Stop: 07/04/24 08:59 Tramadol HCl (Tramadol Hcl 50 Mg Tablet) 50 - 100 mg PO Q4H PRN PRN Reason: Moderate-Severe pain & Pre PT Stop: 07/03/24 14:46 Vitamin D (Cholecalciferol 25 Mcg (1000 Units) Tab) 50 mcg PO QAM [facility] Stop: 07/04/24 08:59 Zinc Sulfate (Zinc Sulfate 220 Mg Capsule) 220 mg PO DAILY [facility] Stop: 07/04/24 08:59 ECG Additional Comments: Preop EKG from 05/11/2024 was reviewed which revealed normal sinus rhythm, RBBB, ventricular rate of 67 bpm, no ST or T wave change but RBBB is new
--- OUTSIDE RECORDS SUMMARY | 2024-06-03 16:42 | External Medical Summary | Summary of Care ---
Author Name Unknown Organization [facility] Address [address] [place] [address] Phone [phone] Care Team Providers Care Architectural Project Captain Name Role Phone Brennan Wolff MD Primary Care Provider + Reason for Visit * Reason Comments Follow Up Encounter Details Date Type Department Care Team (Late st Contact Info) Description 05/17/2024 11:40 AM EDT Office Visit Nephrology, [address] [id number] Leila Crespo MD [address] [place] [id number] Benign hypertension with stage 3a chronic kidney disease (HCC)*; HTN, goal below 140/90 Allergies Active Allergy Reactions Criticality Noted Date Comments Amlodipine Other (Please comment) 02/03/2012 Swelling of ankles Nizatidine 08/03/1997 AXID- RASH Simvastatin 08/03/1997 ZOCOR- RASH Spironolactone Hypotension High 01/10/2023 documented as of this encounter (statuses as of 05/17/2024) Medications Medication Sig Dispensed Refills Start Date End Date Status Cholecalciferol 2000 UNITS Capsule Take 1 Capsule by mouth in the morning. 01/10/2017 Active Magnesium Chloride 64 MG Oral Tablet Delayed Release (Mag-64) Take 1 Tablet by mouth in the morning and 1 Tablet before bedtime. 01/05/2023 Active Zinc 10 MG Mouth/Throat Lozenge Apply to the mouth or throat. Active Carvedilol 12.5 MG Oral Tablet (Coreg) Take 1 Tablet by mouth 2 times a day with morning and evening meals. 180 Tablet 3 11/06/2023 Active Spironolactone 25 MG Oral Tablet (Aldactone) Take 1 Tablet by mouth in the morning. In the morning.. 90 Tablet 3 11/07/2023 Active Atorvastatin Calcium 80 MG Oral Tablet (Lipitor)Indications :Dyslipidemia, goal LDL below 160 TAKE 1 TABLET DAILY 90 Tablet 3 01/30/2024 Active Famotidine 20 MG Oral Tablet (Pepcid)Indications: Gastroesophageal reflux disease without esophagitis Take 1 Tablet by mouth daily. 180 Tablet 3 01/30/2024 Active Pantoprazole Sodium 40 MG Oral Tablet Delayed Release (Protonix)Indication s:Gastroesophageal reflux disease without esophagitis TAKE 1 TABLET BY MOUTH EVERY MORNING 30 MINUTES BEFORE THE FIRST MEAL OF THE DAY. DO NOT CRUSH, SPLIT OR CHEW THE TABLET 90 Tablet 2 01/30/2024 Active Mirtazapine 30 MG Oral Tablet (Remeron)Indications :CHIO (generalized anxiety disorder) Take 30 mg by mouth daily. 90 Tablet 1 04/13/2024 Active Gabapentin 300 MG Oral Capsule (Neurontin)Indicatio ns:CHIO (generalized anxiety disorder) Take 300 mg by mouth in the morning and 600 mg by mouth in the evening 270 Capsule 1 04/13/2024 Active fluvoxaMINE Maleate 100 MG Oral Tablet (Luvox)Indications:G AD (generalized anxiety disorder) Take 0.5 Tablet by mouth in the morning and 1 Tablet before bedtime 135 Tablet 1 04/13/2024 Active Doxazosin Mesylate 4 MG Oral Tablet (Cardura)Indications :HTN, goal below 140/90 TAKE 1 TABLET DAILY 90 Tablet 3 05/06/2024 Active documented as of this encounter (statuses as of 05/17/2024) Active Problems Problem Noted Date Diagnosed Date Sacroiliitis 09/17/2022 Mixed hyperlipidemia 03/06/2022 Cyst of left kidney 01/31/2022 Snuff user 08/23/2021 Benign hypertension with stage 3a chronic kidney disease 11/28/2020 Overview: Per CKD protocol Prediabetes 09/29/2020 Monoclonal gammopathy 06/16/2018 Current moderate episode of major depressive disorder without prior episode 06/04/2018 CHIO (generalized anxiety disorder) 12/02/2017 Carpal tunnel syndrome 09/10/2013 BPH without obstruction/lower urinary tract symp toms 03/10/2013 Disc disorder of lumbar region 02/11/2012 S/P lumbar fusion 02/11/2012 Esophageal reflux 03/05/2011 Mild persistent asthma without complication 11/2010 Family history of colon cancer 03/15/1998 HTN, goal below 140/90 Seasonal allergic rhinitis due to pollen CERVICAL DISC DEGEN documented as of this encounter (statuses as of 05/17/2024) Resolved Problems Problem Noted Date Diagnosed Date Resolved Date Chronic kidney disease, stage 3a 01/02/2021 09/17/2022 Overview: Per CKD protocol Benign hypertension with CKD (chronic kidney disease) stage III 12/03/2018 11/30/2020 Overview: Per CKD protocol Chronic bronchitis 12/03/2018 Benign hypertension with CKD (chronic kidney disease) stage III 12/02/2017 12/03/2018 Kidney disease, chronic, sta ge III (GFR 30-59 ml/min) 01/09/2017 07/03/2018 Ulnar neuropathy 09/10/2013 06/04/2017 Bilateral hand pain 07/27/2013 06/04/20 18 Hiatal hernia 01/14/2012 06/04/2018 Gastroparesis 01/15/2011 06/04/2017 Dyslipidemia, goal LDL below 160 07/25/2010 03/06/2022 Personal history of alcoholism 12/15/2009 06/04/2017 Dyslipidemia, goal to be determined 06/29/2009 07/25/2010 Overview: Per Lipid Taxonomy. Reflux esophagitis 09/11/2006 7 Other specified gastritis wi thout mention of hemorrhage 09/11/2006 06/07/2019 Asthma with severity to be determined 07/29/2006 07/25/2010 Overview: ICD-10 update of inactive term ADVANCE DIRECTIVE INFORMATION 02/20/2006 12/06/2016 Overview: Pt has a living will - copy to be supplied Wheezing 07/26/2005 07/29/2006 CHR ALLRG CONJUNCTIV NEC 04/01/2005 Esophageal reflux 04/01/2005 04/06/2009 Rosacea 03/18/2002 06/07/2019 Folliculitis 03/18/2002 12/15/2009 PURE HYPERCHOLESTEROLEM 06/20 Overview: Per Lipid Taxonomy. Major depressive disorder Overview: ICD-10 update of inactive term documented as of this encounter (statuses as of 05/17/2024) Immunizations Name Administration Dates Next Due COVID-19 mRNA, LNP-s, No Pre serve, 2-Dose Series (Moderna) 09/17/2020,08/14/2020 COVID-19, mRNA, LNP-s, PF, B ooster, 100mcg/0.5mg (Moderna) 05/21/2021 Covid-19, Mrna, Lnp-s, Pf, B ivalent, 50 Mcg, IM, 12 yrs and above (Moderna) 04/23/2022 H1N1 2009 Influenza, IM 08/10/2009 Pneumococcal Conjugate Vacc, 13 Valent (Prevnar) 12/06/2016 Pneumococcal Polysaccharide PPV23 (Pneumovax) 06/04/2018,11/04/2008 Season Influenza, Quad, PF, Adjuvanted, 65+ Yrs, IM (FLUAD) 04/29/2022,03/24/2020 Seasonal Influenza Vac., MDV , IM, 0.5 mL (Fluzone) 04/29/2014,04/29/2013,04/16/2012,04/20,04/06/2009,05/23/2008,05/28/20 07,06/07/2006 Seasonal Influenza, High Dos e, Trivalent, PF, IM (Fluzone HD) 04/27/2024 Seasonal Influenza, PF, 6 M & above, IM , (FluLaval or Fluzone) 05/04/2018,04/30/2017 Seasonal Influenza, Quadriva lent Hd (Fluzone Hd) 04/25/2023,04/19/2021 Seasonal Influenza, Quadriva lent, No Preserve, IM 04/24/2016,05/22/2015 04/24/2017 Seasonal Influenza, Trivalen t, Adjuvanted, 65+ YRS, PF, (Fluad) 04/27/2019 TD - Tetanus/Diptheria (ADULT) 11/04/2006 TDAP (age 10 and older)(Boostrix) 01/11/2022 Varicella Zoster Vaccine (Adult) 04/03/2011 Zoster Vaccine Recombinant (Shingrix) 08/27/2018 ,06/24/2018 documented as of this encounter Social History Tobacco Use Types Packs/Day Years Used Date Smoking Tobacco: Never Smokeless Tobacco: Current Snuff Tobacco Cessation:Ready to Q uit: Not Asked; Counseling Given: Not Answered Comments:Passive smoke exposure as a young child Parent smoked. Chews 1can snuff/d since age 25 Alcohol Use Standard Drinks/Week Comments No 0 (1 standard drink = 0.6 oz pure alcohol) Quit 10/2009; no reported current use PHQ-2 Answer Date Recorded PHQ Adult Total Score 0 03/06/2022 Hunger Vital Sign Answer Date Recorded Within the past 12 months, y ou worried that your food would run out before you got the money to buy more. Never true 09/17/19 23 Within the past 12 months, t he food you bought just didn't last and you didn't have money to get more. Never true 09/17/2022 Utilities Answer Date Recorded Do you have trouble paying y our heating, water, or electric bill? (Adult - for ages 18 years and over) Not on file 01/06/2024 Is your family able to pay t he heat, water, or electric bill? (Household - for ages 0-17 years) Not on file 01/06/2024 Does your family have access to good internet? (Household - for ages 0-17 years) Not on file 01/06/2024 Social Connections Answer Date Recorded How often do you feel lonely or isolated from those around you? (Adult - for ages 18 years and over) Not on file 01/06/2024 Sex and Gender Information Value Date Recorded Sex Assigned at Male 12/03/2018 8:27 AM EDT Gender Identity Male 12/03/2018 8:27 AM EDT Sexual Orientation Straight 12/03/2018 8: 27 AM EDT Job Start Date Occupation Industry Not on file Not on file Not on file documented as of this encounter Last Filed Vital Signs Vital Sign Reading Time Taken Comments Blood Pressure 135/78 05/17/2024 11:38 AM EDT Pulse 68 05/17/2024 11:38 AM EDT Temperature - - Respiratory Rate - - Oxygen Saturation - - Inhaled Oxygen Concentration - - Weight 101.2 kg (223 lb 3.2 oz) 024 11:38 AM EDT Height - - Body Mass Index 34.02 05/11/2024 9:00 AM EDT documented in this encounter Progress Notes * Leila Crespo MD - 05/17/2024 11:40 AM EDT REASON FOR VISIT: CKD HPI: Jere Askew is a 73 year old male with ckd stage 3 with no proteinuria from htn and nsaids and monoclonal IgG paraproteinemia. He has chronic back pain from fused discs. Had back operation in 2009. Also Arthritis in the hands. He takes diclofenac chronically for back pain. She was seen by Hematology for MGUS who recommends monitoring for now. Pt with bph but urinates well. Pt with hypertension since his forties. Doesn't routinely check his blood pressures. No smoking. No diabetes. patient was also found to have monoclonal protein of IgG type which has been stable over the past 6 months. He denies any bone pain or recent fractures. Patient was hospitalized at [facility] on 01/02/2023 with hypotension and acute kidney injury with creatinine of 2.5 from a baseline of 1.2. Patient also had hyperkalemia of around 6. Aldactone and fosinopril were held. Restarted Aldactone due to high blood pressure on 24 hour ambulatory BP monitor. Last OV was October 2023. Patient is going for spinal fusion in 2 weeks' time at [facility] by Dr. Rock.No shortness of breath or leg swelling. No urinary symptoms. He has lost about 6 lb in the last 6 months by making dietary changes. Blood pressure is controlled. Recent labs reviewed and discussed. Past Medical History: Diagnosis Date Asthma, mild persistent 07/25/2010 Current moderate episode of major depressive disorder without prior episode (HCC) 06/04/2018 Cyst of left kidney 01/31/2022 Depressive disorder, not elsewhere classified Dyslipidemia, goal LDL below 160 Gastroparesis 01/15/2011 HTN, goal below 140/90 INFORMATION 2008 TIA? Other specified gastritis without mention of hemorrhage 09/11/06 mild Personal history of alcoholism (HCC) 12/15/2009 Prediabetes 09/29/2020 Reflux esophagitis 09/11/06 moderate Seasonal allergic rhinitis due to pollen Review of Systems: General ROS: negative for - chills or fever Psychological ROS: negative for - mood swings ENT ROS: negative for - nasal congestion or nasal discharge Endocrine ROS: negative Respiratory ROS: no cough, shortness of breath, or wheezing Cardiovascular ROS: no chest pain or dyspnea on exertion Gastrointestinal ROS: no abdominal pain, change in bowel habits, or black or bloody stools Genito-Urinary ROS: no dysuria, trouble voiding, or hematuria Musculoskeletal ROS: negative for - muscle pain Neurological ROS: no TIA or stroke symptoms Dermatological ROS: negative for rash Family History Problem Relation Name Age of Onset Cancer Father colon/skin ca Neurological Disorder Father parkinson Endocrine Disorder Mother hyperchol Hypertension Mother hypertension Diabetes Mother Social History Socioeconomic History Marital status: Spouse name: Kelly Number of children: 1 Years of education: Not on file Highest education level: Not on file Occupational History Occupation: [employer] Comment: Retired 10/19/05 after 34 years service Tobacco Use Smoking status: Never Smokeless tobacco: Current Types: Snuff Tobacco comments: Passive smoke exposure as a young child Parent smoked. 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 Hazards Not Asked Sleep Concern Yes Comment: due to reflux Stress Concern No Weight Concern No Special Diet No Comment: watches diet; avoids food that increases GERD Back Care Yes Comment: aged or disabled care worker for back pain Exercise No Bike Helmet Not Asked Seat Belt Yes Self-Exams Not Asked Social History Narrative Not on file Social Determinants of Health Financial Resource Strain: Not on file Food Insecurity: No Food Insecurity (09/17/2022) Hunger Vital Sign Worried About Running Out of Food in the Last Year: Never true Ran Out of Food in the Last Year: Never true Transportation Needs: Not on file Social Connections: Unknown (01/06/2024) Social Connections How often do you feel lonely or isolated from those around you? (Adult - for ages 18 years and over): Not on file Housing Stability: Not on file Current Outpatient Medications Medication Sig Dispense Refill Cholecalciferol 2000 UNITS Capsule Take 1 Capsule by mouth in the morning. Magnesium Chloride 64 MG Oral Tablet Delayed Release (Mag-64) Take 1 Tablet by mouth in the morningand 1 Tablet before bedtime. Zinc 10 MG Mouth/Throat Lozenge Apply to the mouth or throat. Carvedilol 12.5 MG Oral Tablet (Coreg) Take 1 Tablet by mouth 2 times a day with morning and evening meals. 180 Tablet 3 Atorvastatin Calcium 80 MG Oral Tablet (Lipitor) TAKE 1 TABLET DAILY 90 Tablet 3 Famotidine 20 MG Oral Tablet (Pepcid) Take 1 Tablet by mouth daily. 180 Tablet 3 Pantoprazole Sodium 40 MG Oral Tablet Delayed Release (Protonix) TAKE 1 TABLET BY MOUTH EVERY MORNING 30 MINUTES BEFORE THE FIRST MEAL OF THE DAY. DO NOT CRUSH, SPLIT OR CHEW THE TABLET 90 Tablet 2 Mirtazapine 30 MG Oral Tablet (Remeron) Take 30 mg by mouth daily. 90 Tablet 1 Gabapentin 300 MG Oral Capsule (Neurontin) Take 300 mg by mouth in the morning and 600 mg by mouth in the evening 270 Capsule 1 fluvoxaMINE Maleate 100 MG Oral Tablet (Luvox) Take 0.5 Tablet by mouth in the morning and 1 Tabletbefore bedtime 135 Tablet 1 Doxazosin Mesylate 4 MG Oral Tablet (Cardura) TAKE 1 TABLET DAILY 90 Tablet 3 Spironolactone 25 MG Oral Tablet (Aldactone) Take 1 Tablet by mouth in the morning. In the morning.. 90 Tablet 3 No current facility-administered medications for this visit. Filed Vitals: 05/17/24 1138 BP: 135/78 Pulse: 68 Weight: 101.2 kg (223 lb 3.2 oz) PHYSICAL EXAM: GENERAL: Alert, in no acute distress. EYES: PERRL, conjunctivae anicteric. ENT: Mucous membranes moist, oropharynx clear. NECK: Supple, no JVD. LYMPH: No cervical or supraclavicular lymphadenopathy. LUNGS: Clear to auscultation bilaterally, no respiratory distress. CARDIAC: Regular rate and rhythm, normal S1/S2, no murmurs, rubs, or gallops. ABDOMEN: Soft, non-tender, non-distended, bowel sounds present. EXT/MSK: No clubbing, cyanosis, or edema. SKIN: No rash, no jaundice. NEURO: No tremor, no asterixis. LABS/STUDIES: Recent Labs Units 05/05/24 1014 11/19/23 1215 09/30/23 1433 03/03/23 1341 SODIUM - [facility] mmol/L 139 138 139 140 POTASSIUM - [facility] mmol/L 4.7 4.8 4.8 4.6 CHLORIDE - [facility] mmol/L 98 104 101 101 CO2 - [facility] mmol/L 29 24 26 28 BUN - [facility] mg/dL 15 16 16 18 CREATININE - [facility] mg/dL 1.4* 1.4* 1.3* 1.3* Recent Labs Units 11/19/23 1215 09/30/23 1433 01/02/23 1115 WBC K/uL 6.78 6.77 10.54 HGB g/dL 15.0 15.2 13.6* PLT K/uL 218 191 271 Recent Labs Units 05/05/24 1014 11/19/23 1215 09/30/23 1433 03/03/23 1341 01/08/23 1258 01/02/23 1115 12/13/22 1342 11/18/22 0852 CALCIUM - [facility] mg/dL 9.7 9.0 9.3 9.4 < > 9.0 9.5 9.0 PHOSPHORUS - [facility] mg/dL 2.8 -- -- -- -- 2.9 2.7 3.1 < > = values in this interval not displayed. Recent Labs Units 05/05/24 1014 09/30/23 1433 11/18/22 0852 HEMOGLOBIN A1C - [facility] % 6.2* 6.2* 5.8* No results for input(s): "MICROALBUMIN", "PROCRRATIO" in the last 80485 hours. ASSESSMENT AND PLAN Jere was seen today for follow up. Diagnoses and all orders for this visit: Benign hypertension with stage 3a chronic kidney disease (HCC) Patient with CKD stage IIIA due to hypertensive nephrosclerosis. Recent creatinine of 1.4 which is around baseline. Electrolytes are stable and no signs of volume overload. Patient is low risk of progression to ESRD. Patient is planned for spinal fusion in few weeks. From renal standpoint he can proceed with surgery. I discussed potential risk for acute kidney injury particularly if the is the intraoperative hypotension or excessive bleeding. Avoid NSAIDs for pain control. Hyperkalemia Patient with history of hyperkalemia in setting of KENA. His creatinine is now back to baseline. He will continue low-potassium diet HTN, goal below 140/90 Blood pressure is controlled today. He will continue Coreg 12.5 twice daily, Cardura and Aldactone 25 mg daily. He will continue monitor blood pressure at home and notify us if systolic is consistently above 140. Leila Crespo MD Nephrology, [address] [address] This note was generated with the help of voice recognition software. Please excuse for errors. documented in this encounter Nursing Notes * Magalys Snow LPN - 05/17/2024 11:38 AM EDT Chief Complaint Patient presents with Follow Up documented in this encounter Plan of Treatment Upcoming Encounters Date Type Department Care Team (Late st Contact Info) Description 10/14/2024 1:00 PM EDT Office Visit General Internal Medicine [address] [place] [phone] Brennan Wolff MD [address] [place] [address] [place] [id number] 11/18/2024 1:40 PM EDT Office Visit Nephrology, [address] [phone] Leila Crespo MD [address] [place] [address] [place] [address] 11/22/2024 11:10 AM EDT Laboratory Laboratory [address] [place] [phone] Edmond Floyd [facility] [address] [facility] [place] [phone] 11/29/2024 12:30 PM EDT Office Visit Hematology/Oncology [facility] Rufino Floyd [address] [place] [phone] July Swift MD [address] [place] [address] Scheduled Procedures Name Priority Associated Diagnoses Date/Ti me COLONOSCOPY FLEXIBLE PROXIMA L DIAGNOSTIC Recall Family history of colon cancer Health Maintenance Due Date Last Done Comments Cologuard 10/12/1995 Sigmoidoscopy 10/12/1995 Fecal Occult Blood Test 01/17/2003 01/17/2002 Adult Wellness Visit 2016 Depression Monitoring 03/06/2023 03/06/2022 COVID-19 Vaccine ( season) 2024 04/23/2022, 05/21/2021, 09/17/2020, Additional history exists Albumin/Creatinine Ratio 10/05/2024 024, 04/09/2022, 12/10/2017, Additional history exists GFR 11/03/2024 05/05/2024, 0507/2023, 09/30/2023, Additional history exists CKD HGB USE SMARTSET 44131 11/18/202411/18, 11/19/2023, 09/30/2023, Additional history exists CKD PHOS USE SMARTSET 98819 05/05/202504/20, 01/02/2023, 12/13/2022, Additional history exists HbA1c 05/05/2025 05/05/2024, 09/18, 11/18/2022, Additional history exists Colonoscopy 01/31/2028 01/30/2023, 01/18, 02/03/2017, Additional history exists Colorectal Cancer Screening 01/31/2028 Lipid Panel 05/05/2029 05/05/2024, 09/18, 11/18/2022, Additional history exists DTap/Tdap Vaccines (2 - Td or Tdap) 01/12/2032 01/11/2022, 11/04/2006, 03/15/1998 Pneumococcal Vaccine: 65+ Years Completed 06/04/2018, 12/06/2016, 11/04/2008 Zoster Vaccines Completed 08/27/2018, 12/11/2017, 04/03/2011 RETIRED - COLONOSCOPY-EVERY 5 YRS AGES 18-100 Discontinued 01/30/2023, 01/30/2023, 02/03/2017, Additional history exists Influenza Vaccine (FLU shot) Completed 04/27/2024, 04/25/2023, 04/29/2022, Additional history exists HPV (Gardasil) Vaccine Aged Out No lo nger eligible based on patient's age to complete this topic Hepatitis B Vaccine Aged Out No longe r eligible based on patient's age to complete this topic MENINGOCOCCAL (MENACTRA/MENVEO) Aged Out No longer eligible based on patient's age to complete this topic documented as of this encounter Medical Devices Not on filedocumented as of this encounter Visit Diagnoses Diagnosis Benign hypertension with stage 3a chronic kidney disease (HCC)- Primary HTN, goal below 140/90 Unspecified essential hypertension documented in this encounter Care Teams Architectural Project Captain Relationship Specialty Start Date End Date Brennan Wolff MD [address] [place] [address] PCP - General Internal Medicine 05/08/21 documented as of this encounter
[2024-06-03] MEDS: carvediloL 12.5 MG TAB PO SCH (16:57)
[2024-06-03] MEDS: MAGNESIUM CHLORIDE W/CALCIUM 64MG DELAYED REL TAB PO SCH (21:07)
[2024-06-03] MEDS: DOCUSATE SODIUM/SENNA 50/8.6MG TAB PO SCH (21:07)
[2024-06-03] MEDS: oxyCODONE HCL IR 5 MG TAB (IMMEDIATE RELEASE) PO PRN (21:07)
[2024-06-03] MEDS: MIRTAZAPINE TAB 15 MG TAB PO SCH (21:07)
[2024-06-03] MEDS: ATORVASTATIN 40 MG TAB PO SCH (21:07)
[2024-06-03] MEDS: fluvoxaMINE MALEATE 50 MG TAB PO SCH (21:07)
[2024-06-04] MEDS: POLYETHYLENE (MIRALAX) 17 GM PACK PO SCH (05:19)
[2024-06-04 06:23] LABS: Basophils # (auto) 0.02 K/uL (0.00-0.20); Basophils % (auto) 0.1 %; Hematocrit (blood only) 36.4 % (42.0-52.0); Hemoglobin 12.4 g/dl (14.0-18.0); Immature Granulocytes # (auto) 0.09 K/uL (0.01-0.20); Immature Granulocytes % (auto) 0.6 %; Lymphocytes # (auto) 0.65 K/uL (1.20-3.40); Lymphocytes % (auto) 4.4 %; Mean Corpuscular Hemoglobin 32.5 pg (25.0-34.0); Mean Corpuscular Hgb Conc 34.1 g/dL (32.0-36.0); Mean Corpuscular Volume 95.3 fL (80.0-100.0); Mean Platelet Volume 10.8 fL (9.4-12.4); Monocytes # (auto) 0.97 K/uL (0.11-0.59); Monocytes % (auto) 6.6 %; Neutrophils # (auto) 13.07 K/uL (1.40-6.50); Neutrophils % (auto) 88.3 %; Platelet Count 192 K/uL (130-400); RDW Coefficient of Variation 13.1 % (11.5-14.5); RDW Standard Deviation 45.3 fL (36.4-46.3); Red Blood Count 3.82 M/uL (4.70-6.10)
[2024-06-04 06:43] LABS: BUN Creatinine Ratio 14.6 (10-20); Calcium 8.4 mg/dl (8.6-10.3); Creatinine Clr Calc Pharmacy 56.4 ml/min; Potassium 4.6 mmol/L (3.5-5.1)
[2024-06-04] MEDS: GABAPENTIN 300 MG CAP PO SCH (08:05)
[2024-06-04] MEDS: DOXAZosin MESYLATE 4 MG TAB PO SCH (08:06)
[2024-06-04] MEDS: SPIRONOLACTONE 25 MG TAB PO SCH (08:06)
[2024-06-04] MEDS: PANTOprazole 40 MG TAB PO SCH (08:06)
[2024-06-04] MEDS: ZINC SULFATE 220 MG CAPSULE PO SCH (08:06)
[2024-06-04] MEDS: FAMOTIDINE 20 MG TAB PO SCH (08:06)
[2024-06-04] MEDS: CHOLECALCIFEROL 25 MCG (1000 UNITS) TAB PO SCH (08:06)
[2024-06-04] MEDS: dexAMETHasone 6 MG in SYRINGE 0 ML IV SCH (08:06)
--- NOTE | 2024-06-04 11:41 | Orthopedic Progress Note ---
Date of Service June 04, 2024 Assessment & Plan (1) Neurogenic claudication due to lumbar spinal stenosis: Plan: At this point we will continue physical therapy monitor his SREEDHAR output hopefully discharge home in the next few days. Admission and Anticipated Discharge Date Admission Date: June 03, 2024 Subjective Back pain controlled leg pain improved Physical Exam Physical Exam: Patient is nature at bedside. Is constricted testing. Appears comfortable. Results & Data Vital Signs (Past 12 Hours) Vital Signs Temp Pulse Resp BP Pulse Ox O2 Del Method O2 Flow Rate 06/04/24 07:35 36.5 C 67 H 124/66 95 Nasal Cannula 06/04/24 02:54 36.5 C 61 16 133/74 93 Nasal Cannula 2 FiO2 06/04/24 07:35 2 06/04/24 02:54 Queries Orthopedic Spine Obesity: Yes
--- NOTE | 2024-06-04 13:25 | Hospitalist Progress Note ---
Date of Service June 04, 2024 Assessment & Plan (1) Neurogenic claudication due to lumbar spinal stenosis: (2) Hypertension: (3) Hyperlipidemia: (4) CKD (chronic kidney disease): Plan Patient is a 73 yr male who has significant past medical history of HTN, HLD, prediabetes, mild persistent asthma, CKD stage III, BPH, cyst of left kidney, sacroiliitis, monoclonal gammopathy, depression with anxiety who presents for elective procedure by Dr. Rock. Neurogenic claudication due to lumbar spinal stenosis S/P T12-L2 decompression and T11-L2 fusion by Dr. Rock on 06/03/2024 Postoperative acute blood loss anemia pain/wound management per orthopedics Continue PT OT as able Bowel regimen to prevent constipation Monitor CBC, no indication for transfusion currently Leukocytosis likely secondary to Decadron Incentive spirometry Hypertension: stable Continue Coreg and Aldactone New RBBB Incidental murmur on exam --ECHO: Left ventricle normal in size. Moderate concentric LVH. Left ankle wall motion is normal. Left ventricle is hyperdynamic. EF greater than 70%. Aortic valve sclerosis moderate, without significant stenosis. Right ventricle is mildly dilated. Tricuspid valve regurgitant velocities suggest elevated right heart pressures. -- Currently asymptomatic Advised to follow-up with his medical esthetician as outpatient Hyperlipidemia: Chronic, stable continue statin CKD III Baseline cr 1.4 avoid nephrotoxic agents Monitor renal function Prediabetes HbA1c 6.2 Depression/anxiety: Chronic, stable, continue home meds DVT Px: Per primary team Code Status Full code Admission and Anticipated Discharge Date Admission Date: June 03, 2024 Subjective Patient is seen and examined at bedside Back pain at surgical site is controlled Offers no new complaints today Denies any chest pain, dyspnea, nausea, vomiting, abdominal pain No bowel movement today Review of Systems Review of Systems: All systems reviewed & are unremarkable except as noted in Subjective Physical Exam Physical Exam: Physical Exam: Vitals signs as noted above General Appearance:Moderately built and nourished, no apparent distress Head: normocephalic, Atraumatic Eyes: normal inspection, EOMI Neck: supple, Trachea midline Respiratory/Chest: Normal breath sounds, CTA, No accessory muscle use Cardiovascular: S1, S2, +faint murmur Abdomen/GI:Soft, Non tender, Bowel sounds present Back: Surgical site in dressing,+ drain Extremities/Musculoskeletal:normal inspection, no edema Neurologic/Psych:AAOX3, grossly no focal neurological deficits Skin: normal color, warm Results & Data Results & Data Vital Signs (Past 12 Hours) Vital Signs Temp Pulse Resp BP Pulse Ox O2 Del Method O2 Flow Rate 06/04/24 11:42 Nasal Cannula 2 06/04/24 07:35 36.5 C 67 H 124/66 95 Nasal Cannula 06/04/24 02:54 36.5 C 61 16 133/74 93 Nasal Cannula 2 FiO2 06/04/24 11:42 06/04/24 07:35 2 06/04/24 02:54 Laboratory Results Short CBC 06/04/24 Range/Units 05:24 WBC 14.80 H (4.8-10.8) K/ul Hgb 12.4 L (14.0-18.0) g/dl Hct 36.4 L (42.0-52.0) % Plt Count 192 (130-400) K/uL BMP 06/04/24 05:24 Sodium 137 Potassium 4.6 Chloride 99 Carbon Dioxide 30 BUN 20 Creatinine 1.37 Glucose 127 H Calcium 8.4 L
[2024-06-05 06:20] LABS: BUN Creatinine Ratio 18.2 (10-20); Calcium 8.7 mg/dl (8.6-10.3); Creatinine Clr Calc Pharmacy 56.4 ml/min; Hematocrit (blood only) 35.4 % (42.0-52.0); Hemoglobin 11.8 g/dl (14.0-18.0); Magnesium 2.1 mg/dl (1.7-2.4); Mean Corpuscular Hemoglobin 32.2 pg (25.0-34.0); Mean Corpuscular Hgb Conc 33.3 g/dL (32.0-36.0); Mean Corpuscular Volume 96.7 fL (80.0-100.0); Mean Platelet Volume 10.9 fL (9.4-12.4); Platelet Count 181 K/uL (130-400); Potassium 4.9 mmol/L (3.5-5.1); RDW Coefficient of Variation 13.2 % (11.5-14.5); RDW Standard Deviation 46.6 fL (36.4-46.3); Red Blood Count 3.66 M/uL (4.70-6.10); White Blood Count 14.35 K/ul (4.8-10.8)
--- NOTE | 2024-06-05 08:00 | Hospitalist Progress Note ---
Date of Service June 05, 2024 Assessment & Plan (1) Neurogenic claudication due to lumbar spinal stenosis: (2) Hypertension: (3) Hyperlipidemia: (4) CKD (chronic kidney disease): Plan Patient is a 73 yr male who has significant past medical history of HTN, HLD, prediabetes, mild persistent asthma, CKD stage III, BPH, cyst of left kidney, sacroiliitis, monoclonal gammopathy, depression with anxiety who presents for elective procedure by Dr. Rock. Neurogenic claudication due to lumbar spinal stenosis S/p spinal surgery S/P T12-L2 decompression and T11-L2 fusion by Dr. Rock on 06/03/2024 Postoperative acute blood loss anemia - hgb 11.8 today (from 12.4 yesterday) Pain/wound management per orthopedics Continue PT/OT as able Continue bowel regimen Monitor CBC, no indication for transfusion currently Leukocytosis likely secondary to Decadron -> downtrending GERD worsened in post-op setting, likely 2/2 decadron -> increased protonix to BID, Pepcid daily with PRN evening dose Hypoxia Requiring 2L NC O2 since post-op, attempt to wean Does not require home O2 Continue incentive spirometry Hypertension Stable. Continue Coreg and Aldactone New RBBB Incidental murmur on exam --ECHO: Left ventricle normal in size. Moderate concentric LVH. Left ankle wall motion is normal. Left ventricle is hyperdynamic. EF greater than 70%. Aortic valve sclerosis moderate, without significant stenosis. Right ventricle is mildly dilated. Tricuspid valve regurgitant velocities suggest elevated right heart pressures. -- Currently asymptomatic Advised to follow-up with his commercial lending assistant as outpatient Hyperlipidemia Chronic, stable continue statin CKD III Baseline cr 1.4 avoid nephrotoxic agents Monitor renal function Prediabetes HbA1c 6.2 Depression/anxiety Chronic, stable, continue home meds DVT Px: SCDs per primary team Code Status: Full code Dispo: admitted to med/surg. Dispo per primary, anticipate tomorrow I spent a total of 40 minutes coordinating, documenting, and providing care for this patient excluding time spent in the performance of separately billed services. Thank you for this consultation. We will follow the patient with you during their hospital stay. You can reach a member of the [facility] Team 10/02 via [employer]. Admission and Anticipated Discharge Date Admission Date: June 03, 2024 Supervising Physician Co-Signing Physician Notes Patient is seen and examined at bedside. Back pain at surgical site is contro lled. Reports heartburn and transient hiccups today. Discussed with patient's family at bedside. Had BM today Physical Exam: Vitals signs as noted above General Appearance:Moderately built and nourished, no apparent distress Head: normocephalic, Atraumatic Eyes: normal inspection, EOMI Neck: supple, Trachea midline Respiratory/Chest: Normal breath sounds, CTA, No accessory muscle use Cardiovascular: S1, S2, +faint murmur Abdomen/GI:Soft, Non tender, Bowel sounds present Back: Surgical site in dressing,+ drain Extremities/Musculoskeletal:normal inspection, no edema Neurologic/Psych:AAOX3, grossly no focal neurological deficits Skin: normal color, warm Neurogenic claudication due to lumbar spinal stenosis S/P T12-L2 decompression and T11-L2 fusion by Dr. Rock on 06/03/2024 Postoperative acute blood loss anemia Transient hypoxia Dyspepsia likely secondary to steroid use Agree with adding Pepcid Weaned off of supplemental oxygen Surgical wound management per primary team I personally interviewed and examined at bedside. Patient's care is coordinated with Riana Rojas PA-C. I have reviewed the advanced practitioner's documentation, and I agree with plan of care. Please refer to the documentation above for details of patient's presentation and for discussion of other issues. I spent a total of26 minutes coordinating, documenting, and providing care for this patient excluding time spent in the performance of separately billed services. Subjective Patient seen and examined in 300-1, POD#2 s/p T12-L2 decompression and fusion. Feeling well today. Some surgical site pain, no BLE pain or paresthesias. Tolerating diet without issue. No F/C, CP, SOB. Still on O2 while admitted, which he does not require at home. States once he gets up and moving around his oxygen stats improve. Had a bowel movement this AM. Review of Systems Review of Systems: At least ten systems reviewed and negative except as noted in the HPI. Physical Exam Physical Exam: Gen: WD/WN, NAD, sitting in bedside chair, resting in bed reading HEENT: Normocephalic, atraumatic, conjunctivae moist, sclerae anicteric, mucous membranes moist Lung: Clear to Auscultation bilaterally, no wheezes/rales/rhonchi Heart: Regular rate, regular rhythm Abdomen: Soft, NT, ND +BS x 4 Extremities: + Spinal dressing c/d/i. SREEDHAR drain visualized. No edema Skin: Warm, no rash Results & Data Results & Data Vital Signs (Past 12 Hours) Vital Signs Temp Pulse Resp BP Pulse Ox O2 Del Method O2 Flow Rate 06/04/24 20:05 36.5 C 62 18 154/72 H 98 Nasal Cannula 2 06/04/24 20:00 Nasal Cannula 2 Laboratory Results Short CBC 06/05/24 Range/Units 05:26 WBC 14.35 H (4.8-10.8) K/ul Hgb 11.8 L (14.0-18.0) g/dl Hct 35.4 L (42.0-52.0) % Plt Count 181 (130-400) K/uL BMP 06/05/24 05:26 Sodium 137 Potassium 4.9 Chloride 100 Carbon Dioxide 31 BUN 25 H Creatinine 1.37 Glucose 116 H Calcium 8.7 Diagnostic Findings Lumbar Spine X-Ray 06/03/24 09:55 FL lumbar spine 2-3V CLINICAL HISTORY: T12-L2 DECOMPRESSION T11-L2 FUSION COMPARISON STUDY: None FLUOROSCOPY TIME: 36.6 seconds FLUOROSCOPY IMAGES: 2 EXPOSURE DOSE: 26.72 mGy FINDINGS: Interbody tien and screw fusion hardware is noted with the imaged hardware appearing intact. Single level discectomy change also noted. Exact numbering cannot be confirmed secondary to magnification of the images. Note that the images were submitted following completion of the surgery. No unexpected opaque foreign bodies identified. IMPRESSION: Fluoroscopic assistance as above. ACT 112: Negative or not required by law. Electronically signed by: Stefan Pace M.D. 06/03/2024 1:02 PM
--- NOTE | 2024-06-05 08:51 | Orthopedic Progress Note ---
Date of Service June 05, 2024 Assessment & Plan (1) Neurogenic claudication due to lumbar spinal stenosis: Plan: Jere is postoperative day 2 status post T12-L2 decompression and fusion. He is doing well. Will continue with physical therapy today. DVT prophylaxis is in the form of teds and SCDs. Continue with aggressive bowel regimen. Continue with pain control. Maintain SREEDHAR drain. Anticipate discharge home tomorrow Admission and Anticipated Discharge Date Admission Date: June 03, 2024 Subjective Jere is postoperative day 2 status post T12-L2 decompression and fusion. He is doing well. Pain is controlled. He had a bowel movement. 8 SREEDHAR drain output last shift was 70 cc. H&H this morning are 11.8 and 35.4 respectively. Yesterday in physical therapy [place] 225 feet. No other complaints. Review of Systems Review of Systems: All systems reviewed & are unremarkable except as noted in HPI & below Physical Exam Physical Exam: He sitting up and eating breakfast in no acute distress alert and oriented x 3 dressing is clean dry and intact with functioning SREEDHAR drain Strength is intact bilateral lower extremities calf soft and nontender bilatera lly Results & Data Vital Signs (Past 12 Hours) Vital Signs Temp Pulse Resp BP Pulse Ox O2 Del Method O2 Flow Rate 06/05/24 08:00 36.9 C 67 17 149/71 H 96 Nasal Cannula 2 Queries Orthopedic Spine Obesity: Yes
[2024-06-05] MEDS: PANTOprazole 40 MG TAB PO SCH (20:19)
[2024-06-06 06:46] LABS: BUN Creatinine Ratio 19.8 (10-20); Calcium 8.8 mg/dl (8.6-10.3); Creatinine Clr Calc Pharmacy 58.9 ml/min; Potassium 4.4 mmol/L (3.5-5.1)
[2024-06-06 07:04] VITALS: PULSE 51; RESP 16; TEMP 98.2; O2SAT 95
--- NOTE | 2024-06-06 08:18 | Discharge Summary ---
Date of Service June 06, 2024 Admission HPI Per Admitting Provider This is a 73-year-old male presents for chronic persistent back and leg pain a failed course of nonoperative care is here for surgical invention. Admission Exam (Per Admitting) Constitutional WD/WN, vitals as above Eyes normal visual martins by confrontation ENMT external ear and nose normal, oropharynx normal Neck normal visual inspection Respiratory normal respiratory effort Cardiovascular Extremities: normal capillary refill Gastrointestinal (Abdomen) Inspection/Auscultation: abdomen normal to inspection Musculoskeletal Spine: + pain with thoraco-lumbar ROM and + thoracic spinal tenderness Extremities: extremities normal to inspection and strength 5/5 throughout Skin no rashes, warm and dry Neurologic normal touch/pain/proprioception and moves all extremities Psychiatric A+Ox3, euthymic affect Eye Contact: good eye contact Discharge Data Consultations 06/03/24 14:47 Consult Hospitalist Routine Procedures Performed Operation Date: 06/03/24 09:55 Actual Procedures p T12-L2 Decompression, T11-L2 Fusion, Interbody Fusion L1-L2, with Application of Bone Morphogenetic Protein, MagetOS Bone Graft and Versawrap, Spinal Cord Monitioring(Not Applicable) - Gian Rock DO s Removal L2 Screw(Not Applicable) - Gian Rock DO Hospital Course (1) Neurogenic claudication due to lumbar spinal stenosis: Jere is being discharged home on postoperative day 3 status post T12-L2 decompression and instrumented fusion. He has had an uneventful hospital course. Pain is controlled. He had a bowel movement. He is ambulating 500+ feet in physical therapy plus the hallways. Lab values have been stable. Discharge Instructions ACTIVITY RECOMMENDATIONS: SELF CARE INSTRUCTIONS AFTER THORACIC/LUMBAR FUSIONS 1. You may walk to your tolerance. It is good exercise for your legs and back. Expect some back and intermittent leg aches and pains. 2. You may perform "counter-top" level activities (make a sandwich, stephane with a project, etc.). 3. No bending or lifting of more than 10 pounds or back twisting of any nature (roll like a log when turning in bed). 4. You may ride in a car for 20-30 minutes at a time. No driving until after your first visit with your doctor. 5. Frequent changes of position and restricting sitting to 30 minutes at a time will help limit the amount of back spasms and stiffness you may experience. 6. You may discontinue the use of ambulatory aids (cane, crutches, etc.) once your strength and confidence allow. 7. You may puppet engineer the shower and let water strike your incision when you arrive home at least once daily. Do not take a tub bath, sit in a hot tub or go into a swimming pool until after your first recheck in the office. 8. You may resume previous diet. SPECIAL CARE INSTRUCTIONS: VERY IMPORTANT TO READ AND REVIEW A. Your surgical incision has been closed with a cosmetic suture under the skin that will dissolve in about 6 weeks. In 14 days, you can use a pair of clean scissors and cut the suture that is left outside of the skin at the ends of your incision. 1. The small skin tapes can be removed 7 days after surgery if they have not fallen off by that point. 2. You may keep the wound open to air as much as possible to promote healing after post-op day number 5 unless told otherwise by your doctor. 3. If you think the wound looks like it is becoming infected (redness or worsening drainage) and/or you are experiencing fever, chill or worsening back pain and muscle spasms, contact the office so that we may evaluate you as soon as possible. B. Complications are uncommon, but please contact us if you have any signs or symptoms of: 1. wound infection (fever higher than 102.5 degrees F, redness, separation of wound, drainage, or increasing pain from the incision) 2. blood clots in legs (pain, swelling, redness and warmth in legs) 3. urinary tract infection (fever higher than 102.5 degrees F, burning upon urination or increased frequency of urination) 4. nerve problems (inability to walk on your toes or heels, numbness, loss of bowel or bladder control) 5. any other symptoms that concern you C. Please call the office at if you have any concerns or questions about your operation or recovery. D. No smoking! Smoking drastically decreases the chance of a solid fusion. E. Do not take any anti-inflammatory medications (Indocin, Advil, Motrin, Aspirin, Naprosyn, etc.) as these may inhibit the chance of a solid fusion. Tylenol is okay to take for pain. MANAGING PAIN AFTER SPINAL SURGERY 1. Narcotic medication is intended for short-term use and will be provided for surgical pain. Surgical pain usually lasts for a period of 4-6 weeks. Narcotic medication includes Percocet, Vicodin, Darvocet, Tylenol #3 or Lortab. 2. Longer-term pain is more appropriately treated with non-narcotic medication such as Tylenol ES. 3. Muscle spasm is not appropriately treated with narcotics. Muscle relaxers such as Soma, Flexeril or Skelaxin can be used along with Tylenol ES. 4. Remember that we all live with some "aches and pains". This is not unusual or uncommon after an injury or as we get older. a. Back pain is expected and may include muscle spasms for 4 to 6 weeks after surgery. The pain should gradually improve. If the pain worsens for no apparent reason, please contact the office. b. Intermittent leg pain may also be experienced and should not be concerned about unless it worsens for no apparent reason. If so, please contact the office. 5. We will provide appropriate medication within the normal guidelines of their prescribed use. We will also be very cautious and aware of potential abuse and extended duration of patients' medication needs. a. Pain medications are for your comfort and to assist with sleep and rest so that the tissue can heal. They are not provided in order to return to normal activity and should not be used through the day. To do so or worsening pain at night can result from ongoing tissue damage and development of tolerance to the prescribed medicine. 6. Please allow 2-3 days to process refills. Prescriptions will not be mailed but must be picked up at the office. FOLLOW UP VISIT: Keep your scheduled follow-up appointment. Any questions, please call the office at .
[2024-06-06 08:40] VITALS: BP 139/67
--- NOTE | 2024-06-06 10:02 | Hospitalist Progress Note ---
Date of Service June 06, 2024 Assessment & Plan (1) Neurogenic claudication due to lumbar spinal stenosis: (2) Hypertension: (3) Hyperlipidemia: (4) CKD (chronic kidney disease): Plan Patient is a 73 yr male who has significant past medical history of HTN, HLD, prediabetes, mild persistent asthma, CKD stage III, BPH, cyst of left kidney, sacroiliitis, monoclonal gammopathy, depression with anxiety who presents for elective procedure by Dr. Rock. Neurogenic claudication due to lumbar spinal stenosis S/p spinal surgery S/P T12-L2 decompression and T11-L2 fusion by Dr. Rock on 06/03/2024 Pain/wound management per orthopedics Continue PT/OT as able Continue bowel regimen Monitor CBC, no indication for transfusion currently Leukocytosis likely secondary to Decadron -> downtrending Hypoxia resolved Hypertension Stable. Continue Coreg and Aldactone New RBBB Incidental murmur on exam --ECHO: Left ventricle normal in size. Moderate concentric LVH. Left ankle wall motion is normal. Left ventricle is hyperdynamic. EF greater than 70%. Aortic valve sclerosis moderate, without significant stenosis. Right ventricle is mildly dilated. Tricuspid valve regurgitant velocities suggest elevated right heart pressures. -- Currently asymptomatic Advised to follow-up with his flat locker as outpatient Hyperlipidemia Chronic, stable continue statin CKD III Baseline cr 1.4 avoid nephrotoxic agents Monitor renal function Prediabetes HbA1c 6.2 Depression/anxiety Chronic, stable, continue home meds A total of 30 minutes was spent on chart review/reviewing diagnostic data/facilitating plan of care/discussion with consultants We will sign off. The patient is medically stable for discharge from our standpoint. Please reach out with questions/concerns. Admission and Anticipated Discharge Date Admission Date: June 03, 2024 Supervising Physician Co-Signing Physician Notes Patient got discharged prior to my encounter with on day of discharge. Chart reviewed. Subjective Patient seen and examined. Reports feeling well today and pain being controlled. Denies any complaints overnight and is anxious for discharge today. Denies any numbness/tingling in lower extremities. Review of Systems Review of Systems: All systems reviewed & are unremarkable except as noted in HPI & below Physical Exam Constitutional: WD/WN, vitals as above Eyes: PERRL, conjunctivae normal, anicteric sclerae ENMT: external ear and nose normal, oropharynx normal Neck: trachea midline, no thyromegaly Respiratory: normal respiratory effort, lungs clear to auscultation Cardiovascular: RRR, no murmur, no edema Gastrointestinal (Abdomen): normal bowel sounds, soft, nontender, no hepatosplenomegaly Musculoskeletal: no cyanosis or clubbing, extremities motor strength 5/5 Skin: no rashes, warm and dry Neurologic: PERRL, EOMI, accommodation nl, no face palsy, no dysarthria Psychiatric: A+Ox3, euthymic affect Lymphatic: no cervical or axillary lymphadenopathy Results & Data Results & Data Vital Signs (Past 12 Hours) Vital Signs Temp Pulse Resp BP BP Pulse Ox O2 Del Method 06/06/24 08:39 36.8 C 51 L 16 139/67 159/82 H 95 06/06/24 07:01 36.8 C 51 L 16 159/82 H 95 Room Air Diagnostic Findings Laboratory Results WBC 14.35 K/ul (4.8-10.8) H 06/05/24 05:26 RBC 3.66 M/uL (4.70-6.10) L 06/05/24 05:26 Hgb 11.8 g/dl (14.0-18.0) L 06/05/24 05:26 Hct 35.4 % (42.0-52.0) L 06/05/24 05:26 MCV 96.7 fL (80.0-100.0) 06/05/24 05:26 MCH 32.2 pg (25.0-34.0) 06/05/24 05:26 MCHC 33.3 g/dL (32.0-36.0) 06/05/24 05:26 RDW Std Deviation 46.6 fL (36.4-46.3) H 06/05/24 05:26 RDW Coeff of Genny 13.2 % (11.5-14.5) 06/05/24 05:26 Plt Count 181 K/uL (130-400) 06/05/24 05:26 MPV 10.9 fL (9.4-12.4) 06/05/24 05:26 Immature Gran % (Auto) 0.6 % 06/04/24 05:24 Neut % (Auto) 88.3 % 06/04/24 05:24 Lymph % (Auto) 4.4 % 06/04/24 05:24 Loving % (Auto) 6.6 % 06/04/24 05:24 Eos % (Auto) 0.0 % 06/04/24 05:24 Baso % (Auto) 0.1 % 06/04/24 05:24 Neut # (Auto) 13.07 K/uL (1.40-6.50) H 06/04/24 05:24 Lymph # (Auto) 0.65 K/uL (1.20-3.40) L 06/04/24 05:24 Loving # (Auto) 0.97 K/uL (0.11-0.59) H 06/04/24 05:24 Eos # (Auto) 0.00 K/uL (0.00-0.50) 06/04/24 05:24 Baso # (Auto) 0.02 K/uL (0.00-0.20) 06/04/24 05:24 Immature Gran # (Auto) 0.09 K/uL (0.01-0.20) 06/04/24 05:24 Sodium 139 mmol/L (136-145) 06/06/24 05:53 Potassium 4.4 mmol/L (3.5-5.1) 06/06/24 05:53 Chloride 100 mmol/L (98-107) 06/06/24 05:53 Carbon Dioxide 33 mmol/L (21-32) H 06/06/24 05:53 Anion Gap 6 (3-11) 06/06/24 05:53 BUN 26 mg/dl (6-23) H 06/06/24 05:53 Creatinine 1.31 mg/dl (0.6-1.4) 06/06/24 05:53 Est Cr Clr Drug Dosing 58.9 ml/min 06/06/24 05:53 eGFR 57.48 06/06/24 05:53 BUN/Creatinine Ratio 19.8 (10-20) 06/06/24 05:53 Glucose 108 mg/dl (70-99(Fasting)) H 06/06/24 05:53 Calcium 8.8 mg/dl (8.6-10.3) 06/06/24 05:53 Magnesium 2.1 mg/dl (1.7-2.4) 06/05/24 05:26 Blood Type A Positive 06/03/24 08:55 Antibody Screen NEGATIVE 06/03/24 08:55 Crossmatch See Detail 06/03/24 08:55 Impressions Lumbar Spine X-Ray 06/03/24 09:55 FL lumbar spine 2-3V CLINICAL HISTORY: T12-L2 DECOMPRESSION T11-L2 FUSION COMPARISON STUDY: None FLUOROSCOPY TIME: 36.6 seconds FLUOROSCOPY IMAGES: 2 EXPOSURE DOSE: 26.72 mGy FINDINGS: Interbody tien and screw fusion hardware is noted with the imaged hardware appearing intact. Single level discectomy change also noted. Exact numbering cannot be confirmed secondary to magnification of the images. Note that the images were submitted following completion of the surgery. No unexpected opaque foreign bodies identified. IMPRESSION: Fluoroscopic assistance as above. ACT 112: Negative or not required by law. Electronically signed by: Stefan Pace M.D. 06/03/2024 1:02 PM
== END 2024-06-06 09:58 | disposition home or self-care (01) | DRG 427 ==
LOC: ASU 08:34 → 3E 12:55